=== PATIENT | female | born 1930 | race Caucasian/White ===

== ENCOUNTER 2016-10-09 17:17 | Inpatient (IN) | payer OTHER, BC ==
[2016-10-09 18:36] VITALS: BMI 23.4
[2016-10-09 20:19] LABS: ALBUMIN 3.2 g/dl (3.4-5.0); ANION GAP 12 (8-16); BILIRUBIN,TOTAL 0.8 mg/dL (0.2-1.0); CALCIUM 8.9 mg/dL (8.5-10.1); CO2 22 mmol/L (21-32); COCKROFT - GAULT 48.6455; CREATININE 0.7 mg/dL (0.55-1.02); GLUCOSE,RANDOM 90 mg/dL (74-106); SGOT/AST 34 U/L (15-37); SGPT/ALT 40 U/L (12-78); TOT PROT 6.3 g/dl (6.4-8.2)
[2016-10-09 20:22] LABS: ALK PHOS 85 U/L (45-117); TROPONIN I < 0.02 ng/ml (0.00-0.05)
[2016-10-09 20:27] LABS: BASOPHIL 0.9 % (0-2.0); EOSINOPHIL 1.7 % (0-4.5); MCHC 33.1 g/dl (32.0-36.0); MEAN CELL VOLUME 93.7 fl (80-96); MEAN PLT VOLUME 9.3 fl (7.5-11.1); NEUTROPHILS 61.7 % (42.8-82.8); PLATELET COUNT 215 K/MM3 (134-434); RDW 13.7 % (11.6-15.6); WHITE BLOOD COUNT 5.1 K/mm3 (4.0-10.0)
[2016-10-09] MEDS ORDERED: FUROSEMIDE 40 MG/4 ML INJECTABLE VIAL IVPB ONE (21:10)
--- NOTE | 2016-10-09 21:15 | PDOC ---
History of Present Illness - General Chief Complaint: Palpitations Stated Complaint: PCP SENT/SOB/PALPITATIONS Time Seen by Provider: 10/09/16 19:06 History Source: Patient, Family Exam Limitations: No Limitations - History of Present Illness Initial Comments: 10/09/16 21:12 85yo Female patient presents to ED with son c/o shortness of breath. Patient states she was sent by Dr. Saunders (Cardiology) for admission. She states for the past several days she has experienced increasing shortness of breath, lower extremity swelling, and palpitations. Patient states she stopped taking Lasix 2 weeks ago, because it makes her urinate to much. Patient denies CP, Abd pain, n/ v/d, fever, cough, congestion, back pain, rash, or any other complaints at this time. Presenting Symptoms: Short of Breath Timing/Duration: reports: getting worse Severity/Quality: reports: moderate Location: denies: substernal, central, epigastric, shoulder, back, abdomen, other Chest Pain Radiation: denies: no radiation, jaw, arms, neck, shoulders, back, sternal notch, epigastric, other Activities at Onset: reports: exertion Past History - Travel Traveled outside of the country in the last 30 days: No Close contact w/someone who was outside of country & ill: No - Past Medical History Allergies/Adverse Reactions: Allergies Allergy/AdvReac Type Severity Reaction Status Date / Time No Known Drug Allergies Allergy Verified 10/09/16 18:10 Home Medications: Ambulatory Orders Aspirin [ASA -] 81 mg PO DAILY 03/07/15 Mirtazapine 7.5 mg PO HS 06/07/15 Carvedilol [Coreg -] 3.125 mg PO DAILY #30 tablet 06/13/15 Furosemide [Lasix -] 20 mg PO DAILY #30 tablet 06/13/15 Anemia: No Asthma: No Cancer: Yes (CA UTERUS) Cardiac Disorders: No CVA: No COPD: No CHF: No Dementia: No Diabetes: No GI Disorders: No Disorders: Yes (KIDNEY STONES) HTN: No Hypercholesterolemia: No Liver Disease: No Seizures: No Thyroid Disease: No - Surgical History Abdominal Surgery: Yes (HERNIA) Appendectomy: Yes - Psycho/Social/Smoking Cessation Hx Anxiety: No Suicidal Ideation: No Smoking History: Never smoked Have you smoked in the past 12 months: No Information on smoking cessation initiated: No Hx Alcohol Use: No Drug/Substance Use Hx: No Substance Use Type: None Cardiac Specific PMH - Complaint Specific PMHX Pacemaker: No Review of Systems - Review of Systems Able to Perform ROS?: Yes Is the patient limited Burmese proficient: No Constitutional: No: Chills, Fever Respiratory: Yes: Cough, Shortness of Breath, SOB with Exertion Cardiac (ROS): No: Chest Pain, Lightheadedness, Palpitations, Syncope, Chest Tightness ABD/GI: No: Diarrhea, Nausea, Vomiting : No: Burning, Dysuria, Hematuria Musculoskeletal: No: Back Pain All Other Systems: Reviewed and Negative *Physical Exam - Vital Signs Last Vital Signs Temp Pulse Resp BP Pulse Ox 97.2 F L 89 18 102/69 100 10/09/16 17:30 10/09/16 17:30 10/09/16 17:30 10/09/16 17:30 10/09/16 19:00 - Physical Exam General Appearance: Yes: Nourished, Appropriately Dressed. No: Apparent Distress, Mild Distress, Moderate Distress, Severe Distress Neck: positive: Trachea midline, Supple. negative: Stridor, Lymphadenopathy (R) , Lymphadenopathy (L) Respiratory/Chest: positive: Crackles. negative: Chest Tender, Lungs Clear, Normal Breath Sounds, Respiratory Distress, Labored Respiration Cardiovascular: positive: Regular Rhythm, Regular Rate, Edema (2+ non-pitting edema) Gastrointestinal/Abdominal: positive: Normal Bowel Sounds, Soft, Distended. negative: Tender, Guarding, Rebound, Tenderness Musculoskeletal: positive: Normal Inspection. negative: CVA Tenderness Extremity: positive: Normal Capillary Refill, Normal Inspection, Normal Range of Motion, Pedal Edema, Swelling. negative: Calf Tenderness, Erythema, Inflammation Integumentary: positive: Normal Color, Dry, Warm Neurologic: positive: critical care clinical nurse specialist II-XII NML intact, Fully Oriented, Alert, Normal Mood/ Affect, Normal Response, Motor Strength 5/5 Heart Score/ECG Review - History History: Slightly suspicious - Electrocardiogram EKG: Normal - Age Age: >/= 65 - Risk Factors Risk Factors Heart Score: Yes Hx Hypercholesterolemia, Yes Hx Hypertension, Yes Positive family hx of cardiac disease Based on the list above the patient has:: >/=3 risk factors or Hx atherosclerotic disease - Troponin Troponin: </= normal limit - Score Heart Score - Total: 4 - ECG Impressions Normal ECG: No Non-specific ST Elevation: No Ischemic Changes: No Bradycardia: No Torsades angela Pointes: No WPW: No Comment:: 10/09/16 21:49 Sinus rhythm with PAC w/ rate of 90 bpm. ED Treatment Course - LABORATORY CBC & Chemistry Diagram: 10/09/16 19:35 10/09/16 19:35 - ADDITIONAL ORDERS Additional order review: Laboratory Results 10/09/16 19:35 Sodium 138 Potassium 4.6 Chloride 104 Carbon Dioxide 22 Anion Gap 12 BUN 22 H Creatinine 0.7 Creat Clearance w eGFR > 60 Random Glucose 90 Calcium 8.9 Total Bilirubin 0.8 D AST 34 D ALT 40 D Alkaline Phosphatase 85 Creatine Kinase 67 Troponin I < 0.02 B-Natriuretic Peptide 7173.21 H Total Protein 6.3 L Albumin 3.2 L 10/09/16 19:35 RBC 3.83 MCV 93.7 MCHC 33.1 RDW 13.7 MPV 9.3 Neutrophils % 61.7 Lymphocytes % 27.3 Monocytes % 8.4 Eosinophils % 1.7 Basophils % 0.9 - RADIOLOGY Radiology Studies Ordered: Category Date Time Status CHEST PA & LAT [RAD] Stat Radiology 10/09/16 19:26 Taken *DC/Admit/Observation/Transfer Diagnosis at time of Disposition: CHF (congestive heart failure), Short of breath on exertion - Discharge Dispostion Condition at time of disposition: Fair Admit: Yes
[2016-10-09] MEDS ORDERED: FUROSEMIDE 40 MG/4 ML INJECTABLE VIAL ONE (21:21)
[2016-10-10 07:42] LABS: BASOPHIL 2.5 % (0-2.0); EOSINOPHIL 2.7 % (0-4.5); MCH 31.7 pg (25.7-33.7); MCHC 34.2 g/dl (32.0-36.0); MEAN CELL VOLUME 92.8 fl (80-96); MEAN PLT VOLUME 8.5 fl (7.5-11.1); NEUTROPHILS 51.4 % (42.8-82.8); PLATELET COUNT 200 K/MM3 (134-434); RDW 13.7 % (11.6-15.6); WHITE BLOOD COUNT 4.1 K/mm3 (4.0-10.0)
[2016-10-10 08:36] LABS: ALBUMIN 3.1 g/dl (3.4-5.0); ALK PHOS 81 U/L (45-117); ANION GAP 12 (8-16); BILIRUBIN,TOTAL 1.1 mg/dL (0.2-1.0); CALCIUM 8.7 mg/dL (8.5-10.1); CO2 27 mmol/L (21-32); COCKROFT - GAULT 48.6455; CREATININE 0.7 mg/dL (0.55-1.02); GLUCOSE,RANDOM 84 mg/dL (74-106); SGOT/AST 23 U/L (15-37); SGPT/ALT 37 U/L (12-78); TOT PROT 6.1 g/dl (6.4-8.2)
--- NOTE | 2016-10-10 08:36 | HP ---
Admitting History and Physical - Primary Care Physician PCP: Savanna Stallings - Admission Chief Complaint: Gradually worsening SOB and plapittaion. History of Present Illness: 85 yrs old F H/O HTN, CAD, HF with moderately reduced EF and diastolic Dysfunctions, moderate MR with PHTN , stopped taking llasix 2 wks ago as it was inconvenient for her, developed gradually worsening SOB, [place] with PND and orthopnea, today visited her [employer] office , considering worsening symptoms of decompensated CHF referred to Ed for hospitalization for IV Diuresis, patient denies any chest pain, fever, cough, palpitation or dizziness , in the Ed received Lasix with good response. Today less SOB and Dyspnea. - Past Medical History Cardiovascular: Yes: CHF, HTN - Smoking History Smoking history: Never smoked Have you smoked in the past 12 months: No - Alcohol/Substance Use Hx Alcohol Use: No Home Medications - Allergies Allergies/Adverse Reactions: Allergies Allergy/AdvReac Type Severity Reaction Status Date / Time No Known Drug Allergies Allergy Verified 10/09/16 18:10 - Home Medications Home Medications: Ambulatory Orders Aspirin [ASA -] 81 mg PO DAILY 03/07/15 Mirtazapine 7.5 mg PO HS 06/07/15 Carvedilol [Coreg -] 3.125 mg PO DAILY #30 tablet 06/13/15 Furosemide [Lasix -] 20 mg PO DAILY #30 tablet 06/13/15 Family Disease History - Family Disease History Family Disease History: Heart Disease: Mother Review of Systems - Review of Systems Constitutional: denies: Diaphoresis, Fever Eyes: denies: Blind Spots, Blurred Vision, Double Vision HENT: denies: Difficult Swallowing, Ear Discharge Neck: denies: Decreased ROM, Lumps, Pain on Movement Cardiovascular: reports: Edema, Shortness of Breath Respiratory: reports: Exercise Intolerance, SOB on Exertion. denies: Cough Gastrointestinal: denies: Abdominal Pain, Bloating, Constipation Genitourinary: denies: Burning, Discharge Musculoskeletal: denies: Back Pain Integumentary: reports: No Symptoms Neurological: denies: No Symptoms, Change in LOC Endocrine: denies: Excessive Sweating, Flushing Hematology/Lymphatic: reports: No Symptoms. denies: Easily Bruised, Excessive Bleeding Psychiatric: reports: No Symptoms. denies: Anxiety, Depression Physical Examination Vital Signs: Vital Signs Temperature 98.4 F 10/10/16 06:24 Pulse Rate 85 10/10/16 06:24 Respiratory Rate 18 10/10/16 06:24 Blood Pressure 105/67 10/10/16 06:24 O2 Sat by Pulse Oximetry (%) 98 10/10/16 05:25 Constitutional: Yes: No Distress, Calm Eyes: Yes: Conjunctiva Clear, EOM Intact HENT: Yes: WNL, Normocephalic. No: Nasal Congestion Neck: Yes: WNL, Supple, Trachea Midline Cardiovascular: Yes: Regular Rate and Rhythm, JVD, Murmur (Systolic in MA) Respiratory: Yes: Regular, Rales ...Rectal Exam: Yes: Deferred Renal/: No: Anuria, Bladder Distention Musculoskeletal: Yes: WNL. No: Back Pain, Joint Stiffness Edema: Yes Edema: LLE: 1+, RLE: 1+ Peripheral Pulses WNL: Yes Peripheral Pulses: Left Doralis Pedis: 2+, Right Dorsalis Pedis: 2+ Integumentary: Yes: WNL Neurological: Yes: WNL, Alert, Oriented ...Motor Strength: WNL, LUE, LLE, RUE, RLE Psychiatric: Yes: WNL, Alert, Oriented. No: Agitated Labs: 10/10/16 05:35 Laboratory Results - last 24 hr 10/09/16 10/09/16 10/10/16 19:35 19:35 05:35 WBC 5.1 4.1 RBC 3.83 3.84 Hgb 11.9 12.2 Hct 35.8 35.7 MCV 93.7 92.8 MCHC 33.1 34.2 RDW 13.7 13.7 Plt Count 215 200 MPV 9.3 8.5 Neutrophils % 61.7 51.4 Lymphocytes % 27.3 33.3 D Monocytes % 8.4 10.1 Eosinophils % 1.7 2.7 Basophils % 0.9 2.5 H Sodium 138 Potassium 4.6 Chloride 104 Carbon Dioxide 22 Anion Gap 12 BUN 22 H Creatinine 0.7 Creat Clearance w eGFR > 60 Random Glucose 90 Calcium 8.9 Total Bilirubin 0.8 D AST 34 D ALT 40 D Alkaline Phosphatase 85 Creatine Kinase 67 Troponin I < 0.02 B-Natriuretic Peptide 7173.21 H Total Protein 6.3 L Albumin 3.2 L Imaging - Results X-ray: Image Reviewed (Pulmonary congestion) EKG: Image Reviewed Problem List - Problems (1) Acute on chronic combined systolic (congestive) and diastolic (congestive) heart failure Code(s): I50.43 - ACUTE ON CHRONIC COMBINED SYSTOLIC AND DIASTOLIC HRT FAIL (2) HTN (hypertension) Code(s): I10 - ESSENTIAL (PRIMARY) HYPERTENSION Qualifiers: Hypertension type: essential hypertension Qualified Code(s): I10 - Essential (primary) hypertension (3) Mitral regurgitation Code(s): I34.0 - NONRHEUMATIC MITRAL (VALVE) INSUFFICIENCY Qualifiers: Cardiac valve disease etiology: nonrheumatic Qualified Code(s): I34.0 - Nonrheumatic mitral (valve) insufficiency (4) Pulmonary HTN Code(s): I27.2 - OTHER SECONDARY PULMONARY HYPERTENSION Assessment/Plan Assessment/Plan Active Medications Active Medications Generic Name Dose Route Start Last Admin Trade Name Freq PRN Reason Stop Dose Admin Aspirin 81 mg 10/10/16 10:00 10/10/16 10:13 Asa - PO 81 mg DAILY LEANNA Administration Carvedilol 3.125 mg 10/10/16 10:00 10/10/16 12:01 Coreg - PO 3.125 mg DAILY LEANNA Administration Enoxaparin Sodium 30 mg 10/10/16 10:00 10/10/16 11:45 Lovenox - SQ Not Given DAILY LEANNA Furosemide 40 mg 10/11/16 10:00 Lasix Injection - IVPUSH DAILY LEANNA Mirtazapine 7.5 mg 10/10/16 22:00 Remeron - PO HS LEANNA Active Medications 1) Acute on chronic combined systolic (congestive) and diastolic (congestive) heart failure Patient has moderately reduced LVFEF with Diastolic dysfunctions, Cont IV Lasix 40mg daily, low salt Diet, Coreg 3.25 mg BID, Entresto, Aldactone F/U BMP daily , ECHO and Cardiology consult. (2) HTN (hypertension) Well controlled cont all home medications (3) Mitral regurgitation Chronic F/U CHF management (4) Pulmonary HTN Secondary to valvular disease and CHF 5. CAD: Patient opted for medical amangement
[2016-10-10] MEDS ORDERED: FUROSEMIDE 40 MG/4 ML INJECTABLE VIAL IVPB ONE (09:00)
[2016-10-10] MEDS ORDERED: ENOXAPARIN NA (PORCINE) 40 MG/0.4 ML DISP.SYRIN SQ SCH (10:00)
[2016-10-10] MEDS: ASPIRIN 81 MG CHEWABLE TABLETS PO SCH (10:13)
[2016-10-10] MEDS: ENOXAPARIN NA (PORCINE) 30 MG/0.3 ML DISP.SYRIN SQ SCH (11:45)
--- NOTE | 2016-10-10 11:58 | CON.CARD ---
Consult Consult Specialty:: Cardiology Referred by:: Patient of Dr. Stallings Reason for Consultation:: Cardiac evaluation - History of Present Illness Chief Complaint: Shortness of breath History of Present Illness: Patient is an 85 year old female well known to me with underlying history of HTN /HCVD, CAD, history of acute on chronic LV systolic and diastolic failure, moderately reduced LV systolic function with segmental wall motion abnormality, moderate to severe mitral valve regurgitation, moderate to severe tricuspid valve regurgitation, moderate pulmonary hypertension, abnormal nuclear myocardial perfusion - large zone of anteroapical and periapical fixed defect c/ w infarct with small chaparro-infarct ischemia and severely reduced LVEF of 36%, cardiac catheterization revealing 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 Resting thallium showed some viability at the apical segment. Patient was opted to be treated medically after full discussions in the office regarding treatment options. Patient was brought in to ED yesterday due to increase in shortness of breath. She denies chest pain or palpitations. She denies paroxysmal nocturnal dyspnea or orthopnea. She denies fever or chills. She denies headache or lightheadedness. Cardiology consultation was called for further evaluation. - History Source History Provided By: Patient, Family Member, Medical Record Limitations to Obtaining History: No Limitations - Past Medical History Cardio/Vascular: Yes: CAD, CHF, HTN, Mitral Insufficiency, Murmur, Pulmonary Hypertension - Alcohol/Substance Use Hx Alcohol Use: No - Smoking History Smoking history: Never smoked Have you smoked in the past 12 months: No Home Medications - Allergies Allergies/Adverse Reactions: Allergies Allergy/AdvReac Type Severity Reaction Status Date / Time No Known Drug Allergies Allergy Verified 10/09/16 18:10 - Home Medications Home Medications: Ambulatory Orders Aspirin [ASA -] 81 mg PO DAILY 03/07/15 Mirtazapine 7.5 mg PO HS 06/07/15 Carvedilol [Coreg -] 3.125 mg PO DAILY #30 tablet 06/13/15 Furosemide [Lasix -] 20 mg PO DAILY #30 tablet 06/13/15 Review of Systems - Review of Systems Constitutional: denies: Chills, Fever Cardiovascular: reports: Shortness of Breath. denies: Chest Pain, Palpitations Respiratory: reports: SOB, SOB on Exertion. denies: Cough, Hemoptysis, Orthopnea, PND, Wheezing Gastrointestinal: denies: Abdominal Pain, Constipation, Diarrhea, Melena, Nausea , Rectal Bleeding, Vomiting Genitourinary: denies: Dysuria Musculoskeletal: reports: Joint Pain Neurological: reports: Unsteady Gait, Weakness. denies: Dizziness, Headache, Numbness, Seizure, Syncope Vital Signs: Vital Signs Temperature 98.2 F 10/10/16 10:00 Pulse Rate 85 10/10/16 10:00 Respiratory Rate 18 10/10/16 10:00 Blood Pressure 93/62 10/10/16 10:00 O2 Sat by Pulse Oximetry (%) 98 10/10/16 10:00 Neck: Yes: Supple Respiratory: Yes: Diminished Gastrointestinal: Yes: Normal Bowel Sounds, Soft. No: Tenderness Cardiovascular: Yes: Regular Rate and Rhythm JVD: No Carotid Bruit: No PMI: Non-Displaced Heart Sounds: Yes: S1, S2. No: Gallop Murmur: Yes: Systolic Murmur (2/6 SM at apex and left sternal border), Grade 2 Edema: Yes Edema: LLE: 1+, RLE: 1+ - Other Data Labs, Other Data: CBC, BMP 10/10/16 05:35 10/10/16 05:35 Laboratory Results - last 24 hr 10/09/16 10/09/16 10/10/16 19:35 19:35 05:35 WBC 5.1 4.1 RBC 3.83 3.84 Hgb 11.9 12.2 Hct 35.8 35.7 MCV 93.7 92.8 MCHC 33.1 34.2 RDW 13.7 13.7 Plt Count 215 200 MPV 9.3 8.5 Neutrophils % 61.7 51.4 Lymphocytes % 27.3 33.3 D Monocytes % 8.4 10.1 Eosinophils % 1.7 2.7 Basophils % 0.9 2.5 H Sodium 138 Potassium 4.6 Chloride 104 Carbon Dioxide 22 Anion Gap 12 BUN 22 H Creatinine 0.7 Creat Clearance w eGFR > 60 Random Glucose 90 Calcium 8.9 Total Bilirubin 0.8 D AST 34 D ALT 40 D Alkaline Phosphatase 85 Creatine Kinase 67 Troponin I < 0.02 B-Natriuretic Peptide 7173.21 H Total Protein 6.3 L Albumin 3.2 L 10/10/16 05:35 WBC RBC Hgb Hct MCV MCHC RDW Plt Count MPV Neutrophils % Lymphocytes % Monocytes % Eosinophils % Basophils % Sodium 141 Potassium 3.9 Chloride 102 Carbon Dioxide 27 D Anion Gap 12 BUN 17 D Creatinine 0.7 Creat Clearance w eGFR > 60 Random Glucose 84 Calcium 8.7 Total Bilirubin 1.1 H D AST 23 D ALT 37 Alkaline Phosphatase 81 Creatine Kinase Troponin I B-Natriuretic Peptide Total Protein 6.1 L Albumin 3.1 L Sinus rhythm with nonspecific T wave, poor R progression Echo: Report Reviewed (Office echocardiography report in HPI) Imaging - Results Chest X-ray: Report Reviewed (Pleural fluid and cardiomegaly) EKG: Report Reviewed Problem List - Problems (1) Acute on chronic combined systolic (congestive) and diastolic (congestive) heart failure Code(s): I50.43 - ACUTE ON CHRONIC COMBINED SYSTOLIC AND DIASTOLIC HRT FAIL (2) CHF (congestive heart failure) Code(s): I50.9 - HEART FAILURE, UNSPECIFIED Qualifiers: Congestive heart failure type: combined Congestive heart failure chronicity: acute on chronic Qualified Code(s): I50.43 - Acute on chronic combined systolic (congestive) and diastolic (congestive) heart failure (3) HTN (hypertension) Code(s): I10 - ESSENTIAL (PRIMARY) HYPERTENSION Qualifiers: Hypertension type: essential hypertension Qualified Code(s): I10 - Essential (primary) hypertension (4) Mitral regurgitation Code(s): I34.0 - NONRHEUMATIC MITRAL (VALVE) INSUFFICIENCY Qualifiers: Cardiac valve disease etiology: nonrheumatic Qualified Code(s): I34.0 - Nonrheumatic mitral (valve) insufficiency (5) Pulmonary HTN Code(s): I27.2 - OTHER SECONDARY PULMONARY HYPERTENSION (6) Tricuspid regurgitation Code(s): I07.1 - RHEUMATIC TRICUSPID INSUFFICIENCY Qualifiers: Cardiac valve disease etiology: nonrheumatic Qualified Code(s): I36.1 - Nonrheumatic tricuspid (valve) insufficiency (7) CAD (coronary artery disease) Code(s): I25.10 - ATHSCL HEART DISEASE OF [place] CORONARY ARTERY W/O ANG PCTRS Qualifiers: Coronary Disease-Associated Artery/Lesion type: [place] artery [place] vs. transplanted heart: [place] heart Associated angina: without angina Qualified Code(s): I25.10 - Atherosclerotic heart disease of [place] coronary artery without angina pectoris Assessment/Plan 1. Acute on chronic LV systolic and diastolic hear failure - Class II-III NYHA classification LV failure 2. Coronary artery disease - JACQUARD LOOM FIXER of LAD with collaterals 3. Severely reduced LVEF 4. Mitral valve regurgitation 5. Tricuspid valve regurgitation with moderate pulmonary HTN 6. HTN/HCVD PLAN: 1. IV Lasix (Furosemide 40 mg IV once a day) and monitor I/Os and daily weight 2. Continue Entresto 49/51 mg twice a day 3. Continue Carvedilol 12.5 mg twice a day 4. Continue ASA 81 mg once a day 5. Continue Spironolactone 25 mg once a day as tolerated 6. Possibly repeat echocardiography on Wednesday prior to discharge Further plans are to follow Juan Saunders MD
[2016-10-10] MEDS: CARVEDILOL 3.125 MG TABLET (FP) PO SCH (12:01)
--- NOTE | 2016-10-10 12:08 | EKG ---
Test Reason : Blood Pressure : / mmHG Vent. Rate : 092 BPM Atrial Rate : 092 BPM P-R Int : 190 ms QRS Dur : 074 ms QT Int : 388 ms P-R-T Axes : 078 008 082 degrees QTc Int : 479 ms SINUS RHYTHM WITH PREMATURE ATRIAL COMPLEXES LEFT ATRIAL ENLARGEMENT ANTEROSEPTAL INFARCT (CITED ON OR BEFORE 09-MAY-2015) T WAVE ABNORMALITY, CONSIDER LATERAL ISCHEMIA ABNORMAL ECG Confirmed by MD NETO, HILARIO ([id number]) on 10/10/2016 12:08:17 PM Referred By: Confirmed By:HILARIO DUQUE MD
[2016-10-10] MEDS: SACUBITRIL/VALSARTAN 49 MG-51 MG TABLET PO SCH ×2 (14:11→21:36)
[2016-10-10] MEDS ORDERED: PT OWN MED DRAWER 7, Y5N ONE (21:35)
[2016-10-10] MEDS: MIRTAZAPINE 15 MG TABLET (FP) PO SCH (21:36)
--- NOTE | 2016-10-11 09:31 | PN ---
Progress Note, Physician Chief Complaint: Feels better Less SOB History of Present Illness: Patient was seen and examined. Awake and alert. Chart was reviewed Denies chest pain or palpitations Less SOB - Current Medication List Current Medications: Active Medications Aspirin (Asa -) 81 mg PO DAILY [facility] Last Admin: 10/10/16 10:13 Dose: 81 mg Carvedilol (Coreg -) 3.125 mg PO DAILY [facility] Last Admin: 10/10/16 12:01 Dose: 3.125 mg Enoxaparin Sodium (Lovenox -) 30 mg SQ DAILY [facility] Last Admin: 10/10/16 11:45 Dose: Not Given Furosemide (Lasix Injection -) 40 mg IVPUSH DAILY [facility] Mirtazapine (Remeron -) 7.5 mg PO HS [facility] Last Admin: 10/10/16 21:36 Dose: 7.5 mg - Objective Vital Signs: Vital Signs Temperature 97.9 F 10/11/16 06:00 Pulse Rate 72 10/11/16 06:00 Respiratory Rate 20 10/11/16 06:00 Blood Pressure 96/50 10/11/16 06:00 O2 Sat by Pulse Oximetry (%) 97 10/10/16 20:23 HENT: Yes: Atraumatic Neck: Yes: Supple Cardiovascular: Yes: Regular Rate and Rhythm, Murmur (2/6 SM apex and LSB), S1, S2 Respiratory: Yes: Diminished Gastrointestinal: Yes: Normal Bowel Sounds, Soft. No: Tenderness Edema: Yes Edema: LLE: Trace, RLE: Trace Additional Findings/Remarks: - Review of Systems Constitutional: denies: Chills, Fever Cardiovascular: reports: Shortness of Breath. denies: Chest Pain, Palpitations Respiratory: reports: SOB, SOB on Exertion. denies: Cough, Hemoptysis, Orthopnea, PND, Wheezing Gastrointestinal: denies: Abdominal Pain, Constipation, Diarrhea, Melena, Nausea , Rectal Bleeding, Vomiting Genitourinary: denies: Dysuria Musculoskeletal: reports: Joint Pain Neurological: reports: Unsteady Gait, Weakness. denies: Dizziness, Headache, Numbness, Seizure, Syncope Labs: CBC, BMP 10/10/16 05:35 10/10/16 05:35 Problem List - Problems (1) Acute on chronic combined systolic (congestive) and diastolic (congestive) heart failure Code(s): I50.43 - ACUTE ON CHRONIC COMBINED SYSTOLIC AND DIASTOLIC HRT FAIL (2) CHF (congestive heart failure) Code(s): I50.9 - HEART FAILURE, UNSPECIFIED Qualifiers: Congestive heart failure type: combined Congestive heart failure chronicity: acute on chronic Qualified Code(s): I50.43 - Acute on chronic combined systolic (congestive) and diastolic (congestive) heart failure (3) HTN (hypertension) Code(s): I10 - ESSENTIAL (PRIMARY) HYPERTENSION Qualifiers: Hypertension type: essential hypertension Qualified Code(s): I10 - Essential (primary) hypertension (4) Mitral regurgitation Code(s): I34.0 - NONRHEUMATIC MITRAL (VALVE) INSUFFICIENCY Qualifiers: Cardiac valve disease etiology: nonrheumatic Qualified Code(s): I34.0 - Nonrheumatic mitral (valve) insufficiency (5) Pulmonary HTN Code(s): I27.2 - OTHER SECONDARY PULMONARY HYPERTENSION (6) Tricuspid regurgitation Code(s): I07.1 - RHEUMATIC TRICUSPID INSUFFICIENCY Qualifiers: Cardiac valve disease etiology: nonrheumatic Qualified Code(s): I36.1 - Nonrheumatic tricuspid (valve) insufficiency (7) CAD (coronary artery disease) Code(s): I25.10 - ATHSCL HEART DISEASE OF [place] CORONARY ARTERY W/O ANG PCTRS Qualifiers: Coronary Disease-Associated Artery/Lesion type: [place] artery [place] vs. transplanted heart: [place] heart Associated angina: without angina Qualified Code(s): I25.10 - Atherosclerotic heart disease of [place] coronary artery without angina pectoris Assessment/Plan 1. Acute on chronic LV systolic and diastolic hear failure - Class II-III NYHA classification LV failure - improving 2. Coronary artery disease - LINEN ATTENDANT of LAD with collaterals 3. Severely reduced LVEF 4. Mitral valve regurgitation 5. Tricuspid valve regurgitation with moderate pulmonary HTN 6. HTN/HCVD PLAN: 1. IV Lasix (Furosemide 40 mg IV once a day) and monitor I/Os and daily weight 2. Continue Entresto 49/51 mg twice a day 3. Continue Carvedilol 12.5 mg twice a day 4. Continue ASA 81 mg once a day 5. Continue Spironolactone 25 mg once a day as tolerated 6. Possibly repeat echocardiography on Wednesday prior to discharge Further plans are to follow Juan Saunders MD
[2016-10-11] MEDS: CARVEDILOL 3.125 MG TABLET (FP) PO SCH (09:49)
[2016-10-11] MEDS: ASPIRIN 81 MG CHEWABLE TABLETS PO SCH (09:49)
[2016-10-11] MEDS: FUROSEMIDE 40 MG/4 ML INJECTABLE VIAL IVPUSH SCH (09:50)
[2016-10-11] MEDS: ENOXAPARIN NA (PORCINE) 30 MG/0.3 ML DISP.SYRIN SQ SCH (09:51)
[2016-10-11] MEDS: SACUBITRIL/VALSARTAN 49 MG-51 MG TABLET PO SCH ×2 (09:57→21:42)
[2016-10-11 12:07] LABS: URINE APPEARANCE CLEAR; URINE BILIRUBIN NEGATIVE (NEGATIVE); URINE BLOOD NEGATIVE (NEGATIVE); URINE COLOR COLORLESS; URINE GLUCOSE (UA) NEGATIVE (NEGATIVE); URINE KETONE NEGATIVE (NEGATIVE); URINE NITRITE NEGATIVE (NEGATIVE); URINE PROTEIN NEGATIVE (NEGATIVE); URINE UROBILINOGEN NEGATIVE E.U./dl (0.2-1.0)
[2016-10-11 12:08] LABS: URINE LEUK ESTERASE 2+ (NEGATIVE)
[2016-10-11 12:09] LABS: URINE BACTERIA RARE /hpf (NONE SEEN); URINE RBC <1 /hpf (0-3); URINE WBC 23 /hpf (3-5)
[2016-10-11 13:24] LABS: COCKROFT - GAULT 30.855; CREATININE 1.1 mg/dL (0.55-1.02)
[2016-10-11 13:48] LABS: MCHC 33.5 g/dl (32.0-36.0); MEAN CELL VOLUME 92.7 fl (80-96); MEAN PLT VOLUME 8.8 fl (7.5-11.1); PLATELET COUNT 276 K/MM3 (134-434); WHITE BLOOD COUNT 6.6 K/mm3 (4.0-10.0)
--- NOTE | 2016-10-11 15:24 | PN ---
Progress Note, Physician Chief Complaint: feels improved denies any SOB or Palpitation still [place] History of Present Illness: 85 yrs old F admitted withy CHF exacerbation - Current Medication List Current Medications: Active Medications Aspirin (Asa -) 81 mg PO DAILY [facility] Last Admin: 10/11/16 09:49 Dose: 81 mg Carvedilol (Coreg -) 3.125 mg PO DAILY [facility] Last Admin: 10/11/16 09:49 Dose: 3.125 mg Enoxaparin Sodium (Lovenox -) 30 mg SQ DAILY [facility] Last Admin: 10/11/16 09:51 Dose: 30 mg Furosemide (Lasix Injection -) 40 mg IVPUSH DAILY [facility] Last Admin: 10/11/16 09:50 Dose: 40 mg Mirtazapine (Remeron -) 7.5 mg PO HS [facility] Last Admin: 10/10/16 21:36 Dose: 7.5 mg - Objective Vital Signs: Vital Signs Temperature 98.2 F 10/11/16 14:00 Pulse Rate 86 10/11/16 14:00 Respiratory Rate 20 10/11/16 14:00 Blood Pressure 94/48 10/11/16 14:00 O2 Sat by Pulse Oximetry (%) 97 10/10/16 20:23 Constitutional: Yes: Well Nourished, No Distress, Calm Eyes: Yes: WNL, Conjunctiva Clear, EOM Intact HENT: Yes: WNL, Atraumatic, Normocephalic Neck: Yes: WNL, Trachea Midline Cardiovascular: Yes: WNL, Regular Rate and Rhythm, Murmur (Systolic in Mitral area), S1, S2 Respiratory: Yes: WNL, Regular, CTA Bilaterally Gastrointestinal: Yes: WNL, Normal Bowel Sounds, Soft Musculoskeletal: Yes: WNL. No: Back Pain, Joint Stiffness Extremities: Yes: WNL. No: Calf Tenderness Edema: LLE: 1+, RLE: 1+ Peripheral Pulses WNL: Yes Peripheral Pulses: Left Doralis Pedis: 1+, Right Dorsalis Pedis: 1+ Wound/Incision: Yes: Clean/Dry Neurological: Yes: WNL, Alert, Oriented ...Motor Strength: WNL, LUE, LLE, RUE, RLE Psychiatric: Yes: WNL, Alert, Oriented Labs: CBC, BMP 10/11/16 12:50 05/21/17 12:45 - ....Imaging Chest X-ray: Image Reviewed (pulmonary congestion) Problem List - Problems (1) Acute on chronic combined systolic (congestive) and diastolic (congestive) heart failure Code(s): I50.43 - ACUTE ON CHRONIC COMBINED SYSTOLIC AND DIASTOLIC HRT FAIL (2) HTN (hypertension) Code(s): I10 - ESSENTIAL (PRIMARY) HYPERTENSION Qualifiers: Hypertension type: essential hypertension Qualified Code(s): I10 - Essential (primary) hypertension (3) Mitral regurgitation Code(s): I34.0 - NONRHEUMATIC MITRAL (VALVE) INSUFFICIENCY Qualifiers: Cardiac valve disease etiology: nonrheumatic Qualified Code(s): I34.0 - Nonrheumatic mitral (valve) insufficiency (4) Pulmonary HTN Code(s): I27.2 - OTHER SECONDARY PULMONARY HYPERTENSION Assessment/Plan Assessment/Plan 1) Acute on chronic combined systolic (congestive) and diastolic (congestive) heart failure Patient has moderately reduced LVFEF with Diastolic dysfunctions, Cont IV Lasix 40mg daily, low salt Diet, Coreg 3.25 mg BID, Entresto, Aldactone F/U BMP daily , ECHO and Cardiology consult. (2) HTN (hypertension) Well controlled cont all home medications (3) Mitral regurgitation Chronic F/U CHF management (4) Pulmonary HTN Secondary to valvular disease and CHF (5) CAD: Patient opted for medical management
[2016-10-11] MEDS ORDERED: PT OWN MED DRAWER 7, Y5N ONE ×2 (19:40→21:40)
[2016-10-11] MEDS: MIRTAZAPINE 15 MG TABLET (FP) PO SCH (21:42)
[2016-10-12 07:27] LABS: BASOPHIL 1.4 % (0-2.0); EOSINOPHIL 3.8 % (0-4.5); MCH 31.3 pg (25.7-33.7); MCHC 33.8 g/dl (32.0-36.0); MEAN CELL VOLUME 92.5 fl (80-96); MEAN PLT VOLUME 8.5 fl (7.5-11.1); NEUTROPHILS 49.3 % (42.8-82.8); PLATELET COUNT 260 K/MM3 (134-434); RDW 13.8 % (11.6-15.6); WHITE BLOOD COUNT 5.4 K/mm3 (4.0-10.0)
[2016-10-12 08:19] LABS: ALBUMIN 3.3 g/dl (3.4-5.0); CALCIUM 9.2 mg/dL (8.5-10.1); COCKROFT - GAULT 37.8335; CREATININE 0.9 mg/dL (0.55-1.02)
[2016-10-12 08:21] LABS: BILIRUBIN,TOTAL 0.6 mg/dL (0.2-1.0); TOT PROT 6.6 g/dl (6.4-8.2)
[2016-10-12] MEDS: SACUBITRIL/VALSARTAN 49 MG-51 MG TABLET PO SCH ×2 (09:26→22:04)
[2016-10-12] MEDS: ENOXAPARIN NA (PORCINE) 30 MG/0.3 ML DISP.SYRIN SQ SCH (09:27)
[2016-10-12] MEDS: FUROSEMIDE 40 MG/4 ML INJECTABLE VIAL IVPUSH SCH (09:27)
[2016-10-12] MEDS: CARVEDILOL 3.125 MG TABLET (FP) PO SCH (09:27)
[2016-10-12] MEDS: ASPIRIN 81 MG CHEWABLE TABLETS PO SCH (09:27)
--- NOTE | 2016-10-12 10:37 | PN ---
Progress Note, Physician Chief Complaint: Feels better Not in distress History of Present Illness: Patient was seen and examined. Awake and alert. Chart was reviewed Denies chest pain or palpitations breathing comfortable - Current Medication List Current Medications: Active Medications Aspirin (Asa -) 81 mg PO DAILY [facility] Last Admin: 10/12/16 09:27 Dose: 81 mg Carvedilol (Coreg -) 3.125 mg PO DAILY [facility] Last Admin: 10/12/16 09:27 Dose: 3.125 mg Enoxaparin Sodium (Lovenox -) 30 mg SQ DAILY [facility] Last Admin: 10/12/16 09:27 Dose: 30 mg Furosemide (Lasix Injection -) 40 mg IVPUSH DAILY [facility] Last Admin: 10/12/16 09:27 Dose: 40 mg Mirtazapine (Remeron -) 7.5 mg PO HS [facility] Last Admin: 10/11/16 21:42 Dose: 7.5 mg - Objective Vital Signs: Vital Signs Temperature 98.7 F 10/12/16 08:10 Pulse Rate 87 10/12/16 08:10 Respiratory Rate 20 10/12/16 08:10 Blood Pressure 100/61 10/12/16 08:10 O2 Sat by Pulse Oximetry (%) 94 L 10/11/16 21:00 Neck: Yes: Supple Cardiovascular: Yes: Regular Rate and Rhythm, Murmur (2/6 SM at apex and LSB), S1, S2 Respiratory: Yes: Diminished Gastrointestinal: Yes: Normal Bowel Sounds, Soft. No: Tenderness Edema: No Additional Findings/Remarks: - Review of Systems Constitutional: denies: Chills, Fever Cardiovascular: reports: Shortness of Breath - improved. denies: Chest Pain, Palpitations Respiratory: reports: SOB, SOB on Exertion - improved. denies: Cough, Hemoptysis, Orthopnea, PND, Wheezing Gastrointestinal: denies: Abdominal Pain, Constipation, Diarrhea, Melena, Nausea , Rectal Bleeding, Vomiting Genitourinary: denies: Dysuria Musculoskeletal: reports: Joint Pain Neurological: reports: Unsteady Gait, Weakness. denies: Dizziness, Headache, Numbness, Seizure, Syncope Labs: CBC, BMP 10/12/16 05:35 10/12/16 05:35 Problem List - Problems (1) Acute on chronic combined systolic (congestive) and diastolic (congestive) heart failure Code(s): I50.43 - ACUTE ON CHRONIC COMBINED SYSTOLIC AND DIASTOLIC HRT FAIL (2) CHF (congestive heart failure) Code(s): I50.9 - HEART FAILURE, UNSPECIFIED Qualifiers: Congestive heart failure type: combined Congestive heart failure chronicity: acute on chronic Qualified Code(s): I50.43 - Acute on chronic combined systolic (congestive) and diastolic (congestive) heart failure (3) HTN (hypertension) Code(s): I10 - ESSENTIAL (PRIMARY) HYPERTENSION Qualifiers: Hypertension type: essential hypertension Qualified Code(s): I10 - Essential (primary) hypertension (4) Mitral regurgitation Code(s): I34.0 - NONRHEUMATIC MITRAL (VALVE) INSUFFICIENCY Qualifiers: Cardiac valve disease etiology: nonrheumatic Qualified Code(s): I34.0 - Nonrheumatic mitral (valve) insufficiency (5) Pulmonary HTN Code(s): I27.2 - OTHER SECONDARY PULMONARY HYPERTENSION (6) Tricuspid regurgitation Code(s): I07.1 - RHEUMATIC TRICUSPID INSUFFICIENCY Qualifiers: Cardiac valve disease etiology: nonrheumatic Qualified Code(s): I36.1 - Nonrheumatic tricuspid (valve) insufficiency (7) CAD (coronary artery disease) Code(s): I25.10 - ATHSCL HEART DISEASE OF [place] CORONARY ARTERY W/O ANG PCTRS Qualifiers: Coronary Disease-Associated Artery/Lesion type: [place] artery [place] vs. transplanted heart: [place] heart Associated angina: without angina Qualified Code(s): I25.10 - Atherosclerotic heart disease of [place] coronary artery without angina pectoris Assessment/Plan 1. Acute on chronic LV systolic and diastolic hear failure - Class II-III NYHA classification LV failure - improving 2. 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 Severely reduced LVEF 4. Mitral valve regurgitation 5. Tricuspid valve regurgitation with moderate pulmonary HTN 6. HTN/HCVD PLAN: 1. IV Lasix (Furosemide 40 mg IV once a day) and monitor I/Os and daily weight - switch to PO Lasix and hope to discharge home today 2. Continue Entresto 49/51 mg twice a day 3. Continue Carvedilol 12.5 mg twice a day 4. Continue ASA 81 mg once a day 5. Restart Spironolactone 25 mg once a day as tolerated 6. Echocardiography today to be reviewed prior to discharge Further plans are to follow and follow up in office (Dr. Saunders) Juan Saunders MD
[2016-10-12] MEDS ORDERED: SPIRONOLACTONE 25 MG TABLET (FP) PO SCH (11:30)
--- NOTE | 2016-10-12 14:42 | DS ---
Physical Examination Vital Signs: Vital Signs Temperature 98.7 F 10/12/16 08:10 Pulse Rate 87 10/12/16 08:10 Respiratory Rate 20 10/12/16 08:10 Blood Pressure 100/61 10/12/16 08:10 O2 Sat by Pulse Oximetry (%) 96 10/12/16 08:00 Findings/Remarks: 85 yrs old F with H/O HTn, CAd opted for medical management, combined systolic and diastolic HF, Dyslipedemia, present with decompensated HF due to non compliance to diuretic admitted with elevated BNP and volume over load, patient is evaluated by Cardiology consult, received IV Lasix for diuresis is being discharged home on PO lasix, feels improved. [id number] stable. Elderly F feels comfortable no c/o SOB HEENT: MM moist, no anemia, PERRLA, EOMI NECK; JVD no Bruit CHEST: CTA B/L CVS; S1S2 R v SM in mitral area ABD: No distention, non tender BS + EXT: No edema feet, no calf tenderness, Pulses +1 [employer]; AOx3 non focal Constitutional: Yes: Well Nourished Eyes: Yes: WNL, Conjunctiva Clear HENT: Yes: WNL, Atraumatic, Normocephalic Neck: Yes: WNL, Supple, Trachea Midline Cardiovascular: Yes: WNL, Regular Rate and Rhythm, Bradycardia, Murmur. No: JVD Respiratory: Yes: WNL, Regular, CTA Bilaterally Gastrointestinal: Yes: WNL, Normal Bowel Sounds, Soft Extremities: Yes: WNL Edema: No Peripheral Pulses WNL: Yes Peripheral Pulses: Left Doralis Pedis: 1+, Right Dorsalis Pedis: 1+ ...Motor Strength: WNL, LUE, LLE, RUE, RLE Labs: CBC, BMP 10/12/16 05:35 10/12/16 05:35 Discharge Summary Reason For Visit: SOB ON EXERTTION,CONGESTIVE HEART FAILURE Current Active Problems Acute on chronic combined systolic (congestive) and diastolic (congestive) heart failure (Acute) CAD (coronary artery disease) (Acute) CHF (congestive heart failure) (Acute) Shortness of breath on exertion (Acute) Condition: Fair - Instructions Referrals: Savanna Stallings MD [Staff Physician] - 1 Week Juan Saunders MD [Staff Physician] - 1 Week - Home Medications Comprehensive Discharge Medication List: Ambulatory Orders Aspirin [ASA -] 81 mg PO DAILY 03/07/15 Mirtazapine 7.5 mg PO HS 06/07/15 Carvedilol [Coreg -] 3.125 mg PO DAILY #30 tablet 06/13/15 Furosemide [Lasix -] 40 mg PO DAILY tablet 10/12/16 Sacubitril/Valsartan [Entresto 49 mg-51 mg Tablet] 1 tab PO BID tablet Spironolactone [Aldactone -] 25 mg PO DAILY tablet 10/12/16
--- NOTE | 2016-10-12 15:19 | PN ---
Progress Note, Physician Chief Complaint: feels improved denies any SOB or Palpitation still [place] History of Present Illness: 85 yrs old F admitted withy CHF exacerbation - Current Medication List Current Medications: Active Medications Aspirin (Asa -) 81 mg PO DAILY [facility] Last Admin: 10/12/16 09:27 Dose: 81 mg Carvedilol (Coreg -) 3.125 mg PO DAILY [facility] Last Admin: 10/12/16 09:27 Dose: 3.125 mg Enoxaparin Sodium (Lovenox -) 30 mg SQ DAILY [facility] Last Admin: 10/12/16 09:27 Dose: 30 mg Furosemide (Lasix -) 40 mg PO DAILY [facility] Mirtazapine (Remeron -) 7.5 mg PO HS [facility] Last Admin: 10/11/16 21:42 Dose: 7.5 mg Spironolactone (Aldactone -) 25 mg PO DAILY [facility] Last Admin: 10/12/16 12:46 Dose: 25 mg - Objective Vital Signs: Vital Signs Temperature 97.0 F L 10/12/16 14:11 Pulse Rate 92 H 10/12/16 14:11 Respiratory Rate 18 10/12/16 14:11 Blood Pressure 87/45 10/12/16 14:11 O2 Sat by Pulse Oximetry (%) 96 10/12/16 08:00 Constitutional: Yes: Well Nourished, No Distress, Calm Eyes: Yes: WNL, Conjunctiva Clear, EOM Intact HENT: Yes: WNL, Atraumatic, Normocephalic Neck: Yes: WNL, Supple, Trachea Midline Cardiovascular: Yes: WNL, Regular Rate and Rhythm, Murmur Respiratory: Yes: WNL, Regular, CTA Bilaterally Gastrointestinal: Yes: WNL, Normal Bowel Sounds Musculoskeletal: Yes: WNL. No: Back Pain Extremities: Yes: WNL. No: Calf Tenderness Edema: No Peripheral Pulses: Left Doralis Pedis: 1+, Right Dorsalis Pedis: 1+ Neurological: Yes: WNL, Alert, Oriented ...Motor Strength: WNL, LUE, LLE, RUE, RLE Labs: CBC, BMP 10/12/16 05:35 10/12/16 05:35 Problem List - Problems (1) Acute on chronic combined systolic (congestive) and diastolic (congestive) heart failure Code(s): I50.43 - ACUTE ON CHRONIC COMBINED SYSTOLIC AND DIASTOLIC HRT FAIL (2) HTN (hypertension) Code(s): I10 - ESSENTIAL (PRIMARY) HYPERTENSION Qualifiers: Hypertension type: essential hypertension Qualified Code(s): I10 - Essential (primary) hypertension (3) Mitral regurgitation Code(s): I34.0 - NONRHEUMATIC MITRAL (VALVE) INSUFFICIENCY Qualifiers: Cardiac valve disease etiology: nonrheumatic Qualified Code(s): I34.0 - Nonrheumatic mitral (valve) insufficiency (4) Pulmonary HTN Code(s): I27.2 - OTHER SECONDARY PULMONARY HYPERTENSION Assessment/Plan Assessment/Plan 1) Acute on chronic combined systolic (congestive) and diastolic (congestive) heart failure Patient has moderately reduced LVFEF with Diastolic dysfunctions, Cont IV Lasix 40mg daily, low salt Diet, Coreg 3.25 mg BID, Entresto, Aldactone F/U BMP daily , ECHO and Cardiology consult. (2) HTN (hypertension) Well controlled cont all home medications (3) Mitral regurgitation Chronic F/U CHF management (4) Pulmonary HTN Secondary to valvular disease and CHF (5) CAD: Patient opted for medical management
[2016-10-12] MEDS ORDERED: PT OWN MED DRAWER 7, Y5N ONE (22:01)
[2016-10-12] MEDS: MIRTAZAPINE 15 MG TABLET (FP) PO SCH (22:03)
[2016-10-13 07:46] VITALS: BP 99/73; PULSE 91; TEMP 98
[2016-10-13 08:41] LABS: MAGNESIUM 2.2 mg/dL (1.8-2.4)
[2016-10-13] MEDS: SACUBITRIL/VALSARTAN 49 MG-51 MG TABLET PO SCH (09:17)
[2016-10-13] MEDS: CARVEDILOL 3.125 MG TABLET (FP) PO SCH (09:18)
[2016-10-13] MEDS: ENOXAPARIN NA (PORCINE) 30 MG/0.3 ML DISP.SYRIN SQ SCH (09:18)
[2016-10-13] MEDS: ASPIRIN 81 MG CHEWABLE TABLETS PO SCH (09:18)
[2016-10-13] MEDS ORDERED: FUROSEMIDE 40 MG TABLET (FP) PO SCH (10:00)
[2016-10-13 10:31] LABS: ALBUMIN 3.1 g/dl (3.4-5.0); ANION GAP 11 (8-16); BILIRUBIN,TOTAL 0.5 mg/dL (0.2-1.0); CALCIUM 9.2 mg/dL (8.5-10.1); CO2 28 mmol/L (21-32); CREATININE 0.7 mg/dL (0.55-1.02); GLUCOSE,RANDOM 88 mg/dL (74-106); SGOT/AST 14 U/L (15-37); SGPT/ALT 26 U/L (12-78); TOT PROT 6.4 g/dl (6.4-8.2)
--- NOTE | 2016-10-13 11:48 | DS ---
Physical Examination Vital Signs: Vital Signs Temperature 98 F 10/13/16 07:45 Pulse Rate 91 H 10/13/16 07:45 Respiratory Rate 20 10/13/16 08:00 Blood Pressure 99/73 10/13/16 07:45 O2 Sat by Pulse Oximetry (%) 98 10/13/16 08:00 Findings/Remarks: 85 yrs old F with H/O HTn, CAd opted for medical management, combined systolic and diastolic HF, Dyslipedemia, present with decompensated HF due to non compliance to diuretic admitted with elevated BNP and volume over load, patient is evaluated by Cardiology consult, received IV Lasix for diuresis is being discharged home on PO lasix, feels improved. [id number] stable. 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 Labs: CBC, BMP 10/12/16 05:35 10/13/16 05:40 Discharge Summary Reason For Visit: SOB ON EXERTTION,CONGESTIVE HEART FAILURE Current Active Problems Acute on chronic combined systolic (congestive) and diastolic (congestive) heart failure (Acute) CAD (coronary artery disease) (Acute) CHF (congestive heart failure) (Acute) Shortness of breath on exertion (Acute) Condition: Fair - Instructions Diet, Activity, Other Instructions: Low salt low Cholesterol diet Referrals: Savanna Stallings MD [Staff Physician] - 1 Week Juan Saunders MD [Staff Physician] - 1 Week Disposition: HOME - Home Medications Comprehensive Discharge Medication List: Ambulatory Orders Aspirin [ASA -] 81 mg PO DAILY 03/07/15 Mirtazapine 7.5 mg PO HS 06/07/15 Carvedilol [Coreg -] 3.125 mg PO DAILY #30 tablet 06/13/15 Furosemide [Lasix -] 40 mg PO DAILY tablet 10/12/16 Sacubitril/Valsartan [Entresto 49 mg-51 mg Tablet] 1 tab PO BID tablet Spironolactone [Aldactone -] 25 mg PO DAILY tablet 10/12/16 Quality Measures-Exclusions - Heart Failure Reason LVF assessment not done: Prior echocardiogram done, Assess on follow-up ( Patient is on Entresto)
--- NOTE | 2016-10-13 12:55 | PN ---
Progress Note, Physician Chief Complaint: Feels better this am Not in distress BP lower end but stable History of Present Illness: Patient was seen and examined. Awake and alert. Chart was reviewed Denies chest pain or palpitations breathing comfortable - Current Medication List Current Medications: Active Medications Aspirin (Asa -) 81 mg PO DAILY [facility] Last Admin: 10/13/16 09:18 Dose: 81 mg Carvedilol (Coreg -) 3.125 mg PO DAILY [facility] Last Admin: 10/13/16 09:18 Dose: 3.125 mg Enoxaparin Sodium (Lovenox -) 30 mg SQ DAILY [facility] Last Admin: 10/13/16 09:18 Dose: 30 mg Furosemide (Lasix -) 40 mg PO DAILY [facility] Last Admin: 10/13/16 09:17 Dose: 40 mg Mirtazapine (Remeron -) 7.5 mg PO HS [facility] Last Admin: 10/12/16 22:03 Dose: 7.5 mg - Objective Vital Signs: Vital Signs Temperature 98 F 10/13/16 07:45 Pulse Rate 91 H 10/13/16 07:45 Respiratory Rate 20 10/13/16 08:00 Blood Pressure 99/73 10/13/16 07:45 O2 Sat by Pulse Oximetry (%) 98 10/13/16 08:00 Neck: Yes: Supple Cardiovascular: Yes: Regular Rate and Rhythm, Murmur (2/6 SM apex and LSB), S1, S2 Respiratory: Yes: Diminished Gastrointestinal: Yes: Normal Bowel Sounds, Soft. No: Tenderness Edema: No Additional Findings/Remarks: - Review of Systems Constitutional: denies: Chills, Fever Cardiovascular: reports: Shortness of Breath - improved. denies: Chest Pain, Palpitations Respiratory: reports: SOB, SOB on Exertion - improved. denies: Cough, Hemoptysis, Orthopnea, PND, Wheezing Gastrointestinal: denies: Abdominal Pain, Constipation, Diarrhea, Melena, Nausea , Rectal Bleeding, Vomiting Genitourinary: denies: Dysuria Musculoskeletal: reports: Joint Pain Neurological: reports: Unsteady Gait, Weakness. denies: Dizziness, Headache, Numbness, Seizure, Syncope Labs: CBC, BMP 10/12/16 05:35 10/13/16 05:40 Problem List - Problems (1) Acute on chronic combined systolic (congestive) and diastolic (congestive) heart failure Code(s): I50.43 - ACUTE ON CHRONIC COMBINED SYSTOLIC AND DIASTOLIC HRT FAIL (2) CHF (congestive heart failure) Code(s): I50.9 - HEART FAILURE, UNSPECIFIED Qualifiers: Congestive heart failure type: combined Congestive heart failure chronicity: acute on chronic Qualified Code(s): I50.43 - Acute on chronic combined systolic (congestive) and diastolic (congestive) heart failure (3) HTN (hypertension) Code(s): I10 - ESSENTIAL (PRIMARY) HYPERTENSION Qualifiers: Hypertension type: essential hypertension Qualified Code(s): I10 - Essential (primary) hypertension (4) Mitral regurgitation Code(s): I34.0 - NONRHEUMATIC MITRAL (VALVE) INSUFFICIENCY Qualifiers: Cardiac valve disease etiology: nonrheumatic Qualified Code(s): I34.0 - Nonrheumatic mitral (valve) insufficiency (5) Pulmonary HTN Code(s): I27.2 - OTHER SECONDARY PULMONARY HYPERTENSION (6) Tricuspid regurgitation Code(s): I07.1 - RHEUMATIC TRICUSPID INSUFFICIENCY Qualifiers: Cardiac valve disease etiology: nonrheumatic Qualified Code(s): I36.1 - Nonrheumatic tricuspid (valve) insufficiency (7) CAD (coronary artery disease) Code(s): I25.10 - ATHSCL HEART DISEASE OF [place] CORONARY ARTERY W/O ANG PCTRS Qualifiers: Coronary Disease-Associated Artery/Lesion type: [place] artery [place] vs. transplanted heart: [place] heart Associated angina: without angina Qualified Code(s): I25.10 - Atherosclerotic heart disease of [place] coronary artery without angina pectoris Assessment/Plan 1. Acute on chronic LV systolic and diastolic hear failure - Class II-III NYHA classification LV failure - improving 2. 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 Severely reduced LVEF 4. Mitral valve regurgitation - severe 5. Tricuspid valve regurgitation - severe with moderate pulmonary HTN 6. HTN/HCVD PLAN: 1. PO Lasix and monitor I/Os and daily weight 2. Continue Entresto 49/51 mg twice a day 3. Continue Carvedilol - currently at 3.125 mg daily - recommend to increase it to 3.125 mg twice a day 4. Continue ASA 81 mg once a day 5. Stop Spironolactone 6. Echocardiography report reviewed - mild to moderate LV systolic dysfunction, severe MR and TR, moderate pulmonary HTN, cannot rule out , mild pulmonic valve regurgitation Further plans are to follow and follow up in office (Dr. Saunders) Juan Saunders MD
[2016-10-13 15:17] LABS: ALK PHOS 74 U/L (45-117)
== END 2016-10-13 13:17 | disposition home or self-care (01) | DRG 293 ==
LOC: JER 17:17 → JERBED 21:50 → J4W 10-10 02:58
PROVIDERS: ADMIT Internal Medicine; ATTEND Internal Medicine
DX: I11.0 Hypertensive heart disease with heart failure (principal); I50.43 Acute on chronic combined systolic (congestive) and diastolic (congestive) heart failure; I34.0 Nonrheumatic mitral (valve) insufficiency; I27.2 Other secondary pulmonary hypertension; I25.10 Atherosclerotic heart disease of native coronary artery without angina pectoris; R26.81 Unsteadiness on feet; R01.1 Cardiac murmur, unspecified; I36.1 Nonrheumatic tricuspid (valve) insufficiency
CPT/HCPCS: 36415; 71020-TC; 80048; 80053; 81003; 81015; 82550; 83735; 83880; 84484; 85025; 85027; 87086; 87186; 93005; 93010; 93306-TC; 99285-25

== ENCOUNTER 2018-09-14 13:34 | Inpatient (IN) | payer OTHER, BC ==
[2018-09-14 13:48] VITALS: BMI 21.4
--- NOTE | 2018-09-14 14:07 | PDOC ---
History of Present Illness - General Chief Complaint: Shortness of Breath Stated Complaint: SOB Time Seen by Provider: 09/14/18 14:07 - History of Present Illness Initial Comments: 87 year old female with PMH of HTN, CAD , combined systolic and diastolic HF, dyslipedemia, present with SOB and lower extremity swelling for the past few days. States that she stopped taking her Lasix because it was making her urinate so frequently. She last saw Dr. Juan Saunders (cards) a few months prior in May without any alteration to her medications. She also has a dry cough. denies fever, chills, nausea, vomiting, diarrhea, constipation, or other symptoms. 09/14/18 14:13 Past History - Past Medical History Allergies/Adverse Reactions: Allergies Allergy/AdvReac Type Severity Reaction Status Date / Time No Known Drug Allergies Allergy Verified 09/14/18 13:48 Home Medications: Ambulatory Orders Aspirin [ASA -] 81 mg PO DAILY 03/07/15 Mirtazapine 7.5 mg PO HS 06/07/15 Carvedilol [Coreg -] 3.125 mg PO DAILY #30 tablet 06/13/15 Furosemide [Lasix -] 40 mg PO DAILY tablet 10/12/16 Sacubitril/Valsartan [Entresto 49 mg-51 mg Tablet] 1 tab PO BID tablet Spironolactone [Aldactone -] 25 mg PO DAILY tablet 10/12/16 Anemia: No Asthma: No Cancer: Yes (CA UTERUS) Cardiac Disorders: No CVA: No COPD: No CHF: Yes Dementia: No Diabetes: No GI Disorders: No Disorders: Yes (KIDNEY STONES) HTN: Yes Hypercholesterolemia: Yes Liver Disease: No Seizures: No Thyroid Disease: No - Surgical History Abdominal Surgery: Yes (HERNIA) Appendectomy: Yes - Suicide/Smoking/Psychosocial Hx Smoking History: Never smoked Have you smoked in the past 12 months: No Information on smoking cessation initiated: No Hx Alcohol Use: No Drug/Substance Use Hx: No Substance Use Type: None Review of Systems - Review of Systems Constitutional: No: Chills, Diaphoresis, Fever HEENTM: No: Eye Pain, Blurred Vision, Tearing Respiratory: Yes: Cough, Shortness of Breath. No: Productive cough Cardiac (ROS): Yes: Edema. No: Chest Pain, Irregular Heart Rate, Lightheadedness, Palpitations, Syncope ABD/GI: No: Constipated, Diarrhea, Nausea, Vomiting : No: Dysuria, Discharge, Frequency Musculoskeletal: No: Back Pain, Gout, Joint Pain Integumentary: No: Bruising, Erythema, Flushing Neurological: No: Headache, Numbness, Paresthesia Psychiatric: No: Anxiety, Depression Hematologic/Lymphatic: No: Anemia, Blood Clots, Easy Bleeding *Physical Exam - Vital Signs Last Vital Signs Temp Pulse Resp BP Pulse Ox 98.3 F 95 H 18 123/77 95 09/14/18 13:46 09/14/18 13:46 09/14/18 13:46 09/14/18 13:46 09/14/18 13:46 - Physical Exam General Appearance: Yes: Nourished, Appropriately Dressed. No: Apparent Distress HEENT: positive: EOMI, DOTTY, Normal ENT Inspection, Normal Voice Neck: positive: Trachea midline, Normal Thyroid, Supple. negative: Tender, Rigid Respiratory/Chest: positive: Respiratory Distress, Labored Respiration, Rapid RR. negative: Chest Tender, Lungs Clear, Normal Breath Sounds (crackles to mid lung stover bilaterally) Cardiovascular: positive: Regular Rhythm, Regular Rate, Edema (bl LE 1+ pitting edema bilaterally) Gastrointestinal/Abdominal: positive: Normal Bowel Sounds, Flat, Soft. negative : Tender Lymphatic: negative: Adenopathy, Tenderness Musculoskeletal: negative: Normal Inspection, Decreased Range of Motion Extremity: positive: Normal Range of Motion, Swelling. negative: Normal Inspection Integumentary: positive: Normal Color, Dry, Warm, Swelling Neurologic: positive: Fully Oriented, Alert, Normal Mood/Affect, Normal Response , Motor Strength 5/5 ED Treatment Course - LABORATORY CBC & Chemistry Diagram: 09/14/18 14:32 09/14/18 14:32 Medical Decision Making - Medical Decision Making 87 year old female with CHF presenting with SOB and bilateral crackles with CXR showing fluid overload and increased BNP with trop 0.06. Consistent with pulmonary edema and acute on chronic heart failure. Resting comfortably on NC 4L with 100% sats after 94% Sat noticed on RA. Given Lasix 40 with good urine output (500 cc). There was question of a possible new RBBB noticed on her EKG ( rate 99, MS 198., QRS 122, QTc 503, with normal axis) but we discussed with Dr. Ciaran Olmedo on the phone and he confirmed that she had a RBBB on her EKG in the office of Dr. Saunders in 05/2018. Admitted under the care of Dr. Stallings for tele admission. 09/14/18 16:07 *DC/Admit/Observation/Transfer Diagnosis at time of Disposition: Acute on chronic left systolic heart failure - Discharge Dispostion Condition at time of disposition: Stable Decision to Admit order: Yes - Referrals - Patient Instructions - Post Discharge Activity
[2018-09-14] MEDS ORDERED: FUROSEMIDE 40 MG/4 ML INJECTABLE VIAL IVPUSH ONE (14:43)
--- NOTE | 2018-09-14 14:59 | PDOC ---
Documentation entered by Marti Patel SCRIBE, acting as scribe for Dariana Wilde MD. Dariana Wilde MD: This documentation has been prepared by the Amanda redman Amanda, SCRIBE, under my direction and personally reviewed by me in its entirety. I confirm that the documentation accurately reflects all work, treatment, procedures, and medical decision making performed by me. Attending Attestation - Resident Resident Name: Ivis Torrescatrachopeter - ED Attending Attestation I have performed the following: I have examined & evaluated the patient, The case was reviewed & discussed with the resident, I agree w/resident's findings & plan, Exceptions are as noted - HPI HPI: 09/14/18 14:55 The patient is a 87 year old female with a significant past medical history of HTN, CAD, combined systolic and diastolic HF, Dyslipedemia, who presents to the ED with complaint of shortness of breath today. She denies CP, palpitations, dizziness, lightheadedness. The patient denies abdominal pain. The patient denies fevers, chills, n/v/d. - Physicial Exam PE: 09/14/18 14:58 GENERAL: The patient is in no acute distress. ENT: Ears normal, nares patent, oropharynx clear without exudates. Moist mucous membranes. No tonsillar enlargement, no exudates NECK: Normal range of motion, supple, no nuchal rigidity LUNGS: Breath sounds equal, decreased breath sounds at the bases, crackles bilaterally HEART:Regular rate and rhythm, normal S1 and S2 without murmur, rub or gallop. ABDOMEN: Soft, nontender, normoactive bowel sounds. EXTREMITIES: Normal range of motion, no edema. NEUROLOGICAL: Cranial nerves II through XII grossly intact. Normal speech. No focal neurological deficits. SKIN: Warm, Dry, normal turgor, no rashes or lesions noted. - Medical Decision Making 87 yo F presenting to the ER with a complaint of shortness of breath Pt has missed several doses of her lasix 09/14/18 16:00 Laboratory Tests 09/14/18 09/14/18 09/14/18 14:32 14:32 14:32 WBC 5.1 Hgb 12.2 Hct 36.2 Plt Count 241 INR 1.11 H BUN 22 H Creatinine 0.6 Creatine Kinase 57 Troponin I 0.06 H B-Natriuretic Peptide 9441.7 H 09/14/18 17:57 EKG - SR rate of 99 bpm, axis nml, intervals abnormal (pr:198ms, QRS:122ms prolonged, QTc:503ms prolonged), RBBB, no st elevation or depression 09/14/18 17:58 CXR - CARDIOMEGALY, fluid overloading 09/14/18 18:01 Given Lasix 40mg IV Will plan to admit Cardiology consult Clinical impression: CHF, initial presentation
[2018-09-14 15:04] LABS: BASO % 0.9 % (0-2.0); EOS % 0.9 % (0-4.5); HEMATOCRIT 36.2 % (32.4-45.2); HEMOGLOBIN 12.2 GM/dL (10.7-15.3); LYMPH % 22.5 % (8-40); MCH 31.1 pg (25.7-33.7); MCHC 33.6 g/dl (32.0-36.0); MEAN CELL VOLUME 92.5 fl (80-96); MEAN PLT VOLUME 8.8 fl (7.5-11.1); MONO % 8.2 % (3.8-10.2); NEUT % 67.5 % (42.8-82.8); PLATELET COUNT 241 K/MM3 (134-434); RBC 3.92 M/mm3 (3.60-5.2); RDW 15.2 % (11.6-15.6); WHITE BLOOD COUNT 5.1 K/mm3 (4.0-10.0)
[2018-09-14] MEDS ORDERED: FUROSEMIDE 40 MG/4 ML INJECTABLE VIAL ONE (15:08)
--- NOTE | 2018-09-14 15:13 | EKG ---
Test Reason : Blood Pressure : / mmHG Vent. Rate : 099 BPM Atrial Rate : 099 BPM P-R Int : 198 ms QRS Dur : 122 ms QT Int : 392 ms P-R-T Axes : 071 017 066 degrees QTc Int : 503 ms SINUS RHYTHM WITH PREMATURE ATRIAL COMPLEXES POSSIBLE LEFT ATRIAL ENLARGEMENT RIGHT BUNDLE BRANCH BLOCK CANNOT RULE OUT ANTEROSEPTAL INFARCT (CITED ON OR BEFORE 09-MAY-2015) ABNORMAL ECG WHEN COMPARED WITH ECG OF 09-OCT-2016 17:30, RIGHT BUNDLE BRANCH BLOCK IS NOW PRESENT QUESTIONABLE CHANGE IN INITIAL FORCES OF ANTEROSEPTAL LEADS Confirmed by KAREN MARITN, SULEMA ([id number]) on 09/14/2018 3:12:39 PM Referred By: Confirmed By:SULEMA JONES MD
[2018-09-14 15:19] LABS: INR 1.11 (0.83-1.09); PROTHROMBIN TIME (PATIENT) 13.1 SEC (9.7-13.0)
[2018-09-14 15:42] LABS: ALBUMIN 3.6 g/dl (3.4-5.0); ALK PHOS 97 U/L (45-117); ANION GAP 7 MMOL/L (8-16); BILIRUBIN,TOTAL 0.8 mg/dL (0.2-1); BLOOD UREA NITROGEN 22 mg/dL (7-18); CALCIUM 9.2 mg/dL (8.5-10.1); CHLORIDE 104 mmol/L (98-107); CO2 25 mmol/L (21-32); CREATININE 0.6 mg/dL (0.55-1.3); GLUCOSE,RANDOM 111 mg/dL (74-106); N-TERMINAL BNP 9441.7 pg/ml (5-450); POTASSIUM 4.3 mmol/L (3.5-5.1); SGOT/AST 19 U/L (15-37); SGPT/ALT 43 U/L (13-61); SODIUM 136 mmol/L (136-145); TOT PROT 7.1 g/dl (6.4-8.2)
[2018-09-14] MEDS ORDERED: ASPIRIN 81 MG CHEWABLE TABLETS PO ONE (15:46)
--- NOTE | 2018-09-14 16:02 | CON.CARD ---
Consult Consult Specialty:: Cardiology Referred by:: ER Reason for Consultation:: CHF - History of Present Illness Chief Complaint: [place], orthopnea History of Present Illness: Patient is an 85 year old female with underlying history of HTN/HCVD, CAD, history of acute on chronic LV systolic and diastolic failure, 12/17/2016 echo moderately reduced LV systolic function with segmental wall motion abnormality, moderate to severe mitral valve regurgitation, moderate to severe tricuspid valve regurgitation, moderate pulmonary hypertension, 07/03/2015 abnormal nuclear myocardial perfusion - large zone of anteroapical and periapical fixed defect c/w infarct with small chaparro-infarct ischemia and severely reduced LVEF of 36%, 07/18/2015 cardiac catheterization revealing 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 Resting thallium showed some viability at the apical segment. Patient was opted to be treated medically after full discussions in the office regarding treatment options. Since last visit 06/03/2018, patient presents with progressive shortness of breath with exertion, orthopnea, positional dizziness without true syncope in context of self d/c Lasix over past several weeks and use of OTC Alleve for right knee arthralgias. She denies chest pain or palpitations. She denies paroxysmal nocturnal dyspnea or LE edema. - History Source History Provided By: Patient Limitations to Obtaining History: No Limitations - Past Medical History Cardio/Vascular: Yes: CHF, HTN - Alcohol/Substance Use Hx Alcohol Use: No - Smoking History Smoking history: Never smoked Have you smoked in the past 12 months: No Home Medications - Allergies Allergies/Adverse Reactions: Allergies Allergy/AdvReac Type Severity Reaction Status Date / Time No Known Drug Allergies Allergy Verified 09/14/18 13:48 - Home Medications Home Medications: Ambulatory Orders Aspirin [ASA -] 81 mg PO DAILY 03/07/15 Carvedilol [Coreg -] 3.125 mg PO DAILY #30 tablet 06/13/15 Sacubitril/Valsartan [Entresto 49 mg-51 mg Tablet] 1 tab PO BID tablet Family Disease History - Family Disease History Family Disease History: Heart Disease: Mother Review of Systems - Review of Systems Respiratory: reports: Orthopnea, SOB on Exertion Vital Signs: Vital Signs Temperature 98.3 F 09/14/18 13:46 Pulse Rate 95 H 09/14/18 13:46 Respiratory Rate 18 09/14/18 13:46 Blood Pressure 123/77 09/14/18 13:46 O2 Sat by Pulse Oximetry (%) 95 09/14/18 13:46 Constitutional: Yes: No Distress, Calm, Thin Neck: Yes: Supple Respiratory: Yes: Regular, Diminished, On Nasal O2 Gastrointestinal: Yes: Soft, Hypoactive Bowel Sounds Cardiovascular: Yes: Regular Rate and Rhythm JVD: No Carotid Bruit: No Heart Sounds: Yes: S1, S2 Murmur: Yes: Systolic Murmur, Grade 2 Edema: Yes Edema: LLE: Trace, RLE: Trace - Other Data Labs, Other Data: CBC, BMP 09/14/18 14:32 09/14/18 14:32 INR, PTT INR 1.11 (0.83-1.09) H 09/14/18 14:32 Troponin, BNP 09/14/18 14:32 Troponin I 0.06 H B-Natriuretic Peptide 9441.7 H Troponin, BNP 09/14/18 14:32 Troponin I 0.06 H B-Natriuretic Peptide 9441.7 H NSR RBBB, PAC c/w previous 06/03/2018, PAC now seen Ejection Fraction %: LVEF < 40 % Imaging - Results Chest X-ray: Report Reviewed (Congestion with bilateral effusions) EKG: Report Reviewed (NSR @ 99, possible LAE PAC RBBB, c/w previous 06/14/2018, PAC now seen) Problem List - Problems (1) Subendocardial ischemia Code(s): I24.8 - OTHER FORMS OF ACUTE ISCHEMIC HEART DISEASE (2) Nonadherence to medication Code(s): Z91.14 - PATIENT'S OTHER NONCOMPLIANCE WITH MEDICATION REGIMEN (3) Acute on chronic combined systolic (congestive) and diastolic (congestive) heart failure Code(s): I50.43 - ACUTE ON CHRONIC COMBINED SYSTOLIC AND DIASTOLIC HRT FAIL (4) CAD (coronary artery disease) Code(s): I25.10 - ATHSCL HEART DISEASE OF [place] CORONARY ARTERY W/O ANG PCTRS Qualifiers: Coronary Disease-Associated Artery/Lesion type: [place] artery [place] vs. transplanted heart: [place] heart Associated angina: without angina Qualified Code(s): I25.10 - Atherosclerotic heart disease of [place] coronary artery without angina pectoris (5) HTN (hypertension) Code(s): I10 - ESSENTIAL (PRIMARY) HYPERTENSION Qualifiers: Hypertension type: essential hypertension Qualified Code(s): I10 - Essential (primary) hypertension (6) Shortness of breath on exertion Code(s): R06.02 - SHORTNESS OF BREATH Assessment/Plan 12/19/2017 Echo: Normal LV size with mild LVH mod decreased LV systolic function , abnl LV compliance, mod LAE, mild LANEY, mild BRO, normal RV size with borderline reduced RV fxn, mild , mod MR, mod TR, mild [place] RVSP 26 mmHg 1. Acute on chronic LV moderate decreased systolic and diastolic heart failure in context of medication noncompliance and NSAID use 2. 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 HTN/HCVD PLAN: 1. IV diuresis with monitor diuretic response, renal fxn and electrolytes 2. Continue Entresto 49/51 mg twice a day 3. Continue Carvedilol 12.5 bid 4. Continue ASA 81 mg once a day 5. Trend trops to document peak, check TSH and lipid panel 6. Thank you for consultative opportunity, emphasized importance of medication and diet compliance
[2018-09-14] MEDS ORDERED: ASPIRIN 81 MG CHEWABLE TABLETS ONE (16:24)
--- NOTE | 2018-09-14 19:33 | HP ---
DATE OF ADMISSION: 09/14/2018 This is an 87-year-old female known to have CHF, hypertension, coronary artery disease, LV dysfunction, who came to the emergency room with complaints of shortness of breath, getting worse for the last 4 to 5 days. She is supposed to take her medications of Lasix, Coreg and . Sometimes she was not taking her water pills. After coming to the ER, she felt better after she got Lasix IV. At this time, around 7 p.m. when I saw her, she is comfortable in the bed. PHYSICAL EXAMINATION: Vital Signs: BP 130/80, pulse 88, respirations 20, temperature 98. HEENT: Unremarkable. Neck: Supple. No JVD. Lungs: Bibasilar rales present. Heart: S1 and S2 normal. No S3 or S4. Extremities: Legs with edema present. Neurological: Examination grossly normal. LABORATORY REPORTS: Electrolytes are normal. Blood sugar 111, sodium 136. Her troponin is 0.06. B natriuretic peptide is 9441. WBC 5.1, hemoglobin 12.2, platelets 241. Chest x-ray: Bilateral congestion present. Maybe minimal effusion in the right base. IMPRESSION: 1. Congestive heart failure, acute exacerbation. 2. Atherosclerotic heart disease. PLAN: Cardiology consultation. Continue her present medications. Will follow. CRISTIANA FRAUSTO M.D. [id number]
[2018-09-14] MEDS ORDERED: CARVEDILOL 12.5 MG TABLET (FP) ONE (22:16)
[2018-09-14] MEDS: CARVEDILOL 12.5 MG TABLET (FP) PO SCH (22:19)
[2018-09-14] MEDS: SACUBITRIL/VALSARTAN 49 MG-51 MG TABLET PO SCH (23:31)
[2018-09-15] MEDS ORDERED: FUROSEMIDE 40 MG/4 ML INJECTABLE VIAL ONE (06:18)
[2018-09-15] MEDS: FUROSEMIDE 40 MG/4 ML INJECTABLE VIAL IVPUSH SCH ×2 (06:22→15:33)
[2018-09-15 09:03] LABS: ANION GAP 6 MMOL/L (8-16); BLOOD UREA NITROGEN 21 mg/dL (7-18); CALCIUM 9.4 mg/dL (8.5-10.1); CHLORIDE 102 mmol/L (98-107); CHOLESTEROL 206 mg/dL (50-200); CO2 31 mmol/L (21-32); CREATININE 0.8 mg/dL (0.55-1.3); GLUCOSE,RANDOM 103 mg/dL (74-106); HDL CHOLESTEROL 63 mg/dL (40-60); POTASSIUM 4.2 mmol/L (3.5-5.1); SODIUM 139 mmol/L (136-145); TRIGLYCERIDES 89 mg/dL (0-150)
--- NOTE | 2018-09-15 09:37 | PN ---
Progress Note, Physician Chief Complaint: SOB better History of Present Illness: Admitted with CHF - Current Medication List Current Medications: Active Medications Aspirin (Asa -) 81 mg PO DAILY [facility] Carvedilol (Coreg -) 12.5 mg PO BID [facility] Last Admin: 09/14/18 22:19 Dose: 12.5 mg Furosemide (Lasix Injection -) 40 mg IVPUSH BID@0600,1400 [facility] Last Admin: 09/15/18 06:22 Dose: 40 mg Sacubitril/Valsartan (Entresto 49 Mg-51 Mg Tablet) 1 tab PO BID [facility] Last Admin: 09/14/18 23:31 Dose: 1 tab - Objective Vital Signs: Vital Signs Temperature 98.3 F 09/14/18 13:46 Pulse Rate 95 H 09/14/18 13:46 Respiratory Rate 18 09/14/18 13:46 Blood Pressure 123/77 09/14/18 13:46 O2 Sat by Pulse Oximetry (%) 95 09/14/18 13:46 Constitutional: Yes: Anxious Eyes: Yes: WNL HENT: Yes: WNL Neck: Yes: WNL Cardiovascular: Yes: Regular Rate and Rhythm Respiratory: Yes: Rales Gastrointestinal: Yes: Normal Bowel Sounds Genitourinary: Yes: WNL Edema: LLE: 1+, RLE: 1+ Psychiatric: Yes: Alert Labs: CBC, BMP 09/14/18 14:32 09/15/18 07:20 INR, PTT INR 1.11 (0.83-1.09) H 09/14/18 14:32 Assessment/Plan admit to regular floor
[2018-09-15] MEDS: ASPIRIN 81 MG CHEWABLE TABLETS PO SCH (10:28)
[2018-09-15] MEDS: SACUBITRIL/VALSARTAN 49 MG-51 MG TABLET PO SCH ×2 (10:29→22:00)
[2018-09-15] MEDS: CARVEDILOL 12.5 MG TABLET (FP) PO SCH ×2 (10:29→21:28)
--- NOTE | 2018-09-15 11:23 | PN ---
Progress Note, Physician History of Present Illness: Shortness of breath with exertion, orthopnea improving with diuresis. - Current Medication List Current Medications: Active Medications Aspirin (Asa -) 81 mg PO DAILY [facility] Last Admin: 09/15/18 10:28 Dose: 81 mg Carvedilol (Coreg -) 12.5 mg PO BID [facility] Last Admin: 09/15/18 10:29 Dose: 12.5 mg Furosemide (Lasix Injection -) 40 mg IVPUSH BID@0600,1400 [facility] Last Admin: 09/15/18 06:22 Dose: 40 mg Sacubitril/Valsartan (Entresto 49 Mg-51 Mg Tablet) 1 tab PO BID [facility] Last Admin: 09/15/18 10:29 Dose: 1 tab - Objective Vital Signs: Vital Signs Temperature 98.0 F 09/15/18 10:27 Pulse Rate 75 09/15/18 10:27 Respiratory Rate 18 09/15/18 10:27 Blood Pressure 115/68 09/15/18 10:27 O2 Sat by Pulse Oximetry (%) 96 09/15/18 09:07 Constitutional: Yes: No Distress, Calm, Thin Neck: Yes: Supple Cardiovascular: Yes: Regular Rate and Rhythm Respiratory: Yes: Regular, Diminished Gastrointestinal: Yes: Normal Bowel Sounds, Soft Edema: No Labs: CBC, BMP 09/14/18 14:32 09/15/18 07:20 INR, PTT INR 1.11 (0.83-1.09) H 09/14/18 14:32 Problem List - Problems (1) Subendocardial ischemia Code(s): I24.8 - OTHER FORMS OF ACUTE ISCHEMIC HEART DISEASE (2) Nonadherence to medication Code(s): Z91.14 - PATIENT'S OTHER NONCOMPLIANCE WITH MEDICATION REGIMEN (3) Acute on chronic combined systolic (congestive) and diastolic (congestive) heart failure Code(s): I50.43 - ACUTE ON CHRONIC COMBINED SYSTOLIC AND DIASTOLIC HRT FAIL (4) CAD (coronary artery disease) Code(s): I25.10 - ATHSCL HEART DISEASE OF [place] CORONARY ARTERY W/O ANG PCTRS Qualifiers: Coronary Disease-Associated Artery/Lesion type: [place] artery [place] vs. transplanted heart: [place] heart Associated angina: without angina Qualified Code(s): I25.10 - Atherosclerotic heart disease of [place] coronary artery without angina pectoris (5) HTN (hypertension) Code(s): I10 - ESSENTIAL (PRIMARY) HYPERTENSION Qualifiers: Hypertension type: essential hypertension Qualified Code(s): I10 - Essential (primary) hypertension (6) Shortness of breath on exertion Code(s): R06.02 - SHORTNESS OF BREATH Assessment/Plan 12/19/2017 Echo: Normal LV size with mild LVH mod decreased LV systolic function , abnl LV compliance, mod LAE, mild LANEY, mild BRO, normal RV size with borderline reduced RV fxn, mild , mod MR, mod TR, mild [place] RVSP 26 mmHg 1. Acute on chronic LV moderate decreased systolic and diastolic heart failure in context of medication noncompliance and NSAID use 2. 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 HTN/HCVD 4. Hyperlipidemia PLAN: 1. IV diuresis with monitor diuretic response, renal fxn and electrolytes 2. Continue Entresto 49/51 mg twice a day 3. Continue Carvedilol 12.5 bid 4. Continue ASA 81 mg once a day, add Lipitor 20 qd for goal LDL<100 5. Trops downtrending 6. Emphasized importance of medication and diet compliance
[2018-09-15 17:55] LABS: EPI CELLS 2.1 /HPF (0-5/HPF); PH,URINE 7.5 (5.0-8.0); URINE APPEARANCE CLEAR; URINE BACTERIA 3528.1 /hpf (NEGATIVE); URINE BILIRUBIN NEGATIVE (NEGATIVE); URINE CASTS 1 /lpf (0-8); URINE COLOR YELLOW; URINE GLUCOSE (UA) NEGATIVE (NEGATIVE); URINE KETONE NEGATIVE (NEGATIVE); URINE LEUK ESTERASE 2+ (NEGATIVE); URINE NITRITE NEGATIVE (NEGATIVE); URINE PROTEIN NEGATIVE (NEGATIVE); URINE RBC 1 /hpf (0-4); URINE UROBILINOGEN 0.2 mg/dL (0.2-1.0); URINE WBC 9 /hpf (0-5)
[2018-09-15] MEDS ORDERED: PT OWN MED DRAWER 7, Y5N ONE (21:15)
[2018-09-15] MEDS: ATORVASTATIN CA 20 MG TABLET (FP) PO SCH (21:28)
[2018-09-16] MEDS: FUROSEMIDE 40 MG/4 ML INJECTABLE VIAL IVPUSH SCH ×2 (05:20→14:21)
[2018-09-16] MEDS ORDERED: PT OWN MED DRAWER 7, Y5N ONE (09:16)
--- NOTE | 2018-09-16 09:19 | PN ---
Progress Note, Physician Chief Complaint: sob persists History of Present Illness: Admitted with exacerbation of CHF - Current Medication List Current Medications: Active Medications Aspirin (Asa -) 81 mg PO DAILY [facility] Last Admin: 09/15/18 10:28 Dose: 81 mg Atorvastatin Calcium (Lipitor -) 20 mg PO HS [facility] Last Admin: 09/15/18 21:28 Dose: 20 mg Carvedilol (Coreg -) 12.5 mg PO BID [facility] Last Admin: 09/15/18 21:28 Dose: 12.5 mg Furosemide (Lasix Injection -) 40 mg IVPUSH BID@0600,1400 [facility] Last Admin: 09/16/18 05:20 Dose: 40 mg Sacubitril/Valsartan (Entresto 49 Mg-51 Mg Tablet) 1 tab PO BID [facility] Last Admin: 09/15/18 22:00 Dose: 1 tab - Objective Vital Signs: Vital Signs Temperature 97.6 F 09/16/18 06:00 Pulse Rate 61 09/16/18 06:00 Respiratory Rate 20 09/16/18 06:00 Blood Pressure 96/51 L 09/16/18 06:00 O2 Sat by Pulse Oximetry (%) 96 09/15/18 09:07 Constitutional: Yes: Anxious Eyes: Yes: WNL HENT: Yes: WNL Cardiovascular: Yes: Regular Rate and Rhythm Respiratory: Yes: Rales Gastrointestinal: Yes: WNL ...Rectal Exam: Yes: Deferred Genitourinary: Yes: WNL Breast(s): Yes: WNL Musculoskeletal: Yes: WNL Edema: No Neurological: Yes: Alert Psychiatric: Yes: Alert Labs: CBC, BMP 09/14/18 14:32 09/15/18 07:20 INR, PTT INR 1.11 (0.83-1.09) H 09/14/18 14:32 Assessment/Plan Rpt Xray chest
[2018-09-16] MEDS: ASPIRIN 81 MG CHEWABLE TABLETS PO SCH (09:28)
[2018-09-16] MEDS: CARVEDILOL 12.5 MG TABLET (FP) PO SCH ×2 (09:28→21:32)
[2018-09-16] MEDS: SACUBITRIL/VALSARTAN 49 MG-51 MG TABLET PO SCH ×2 (09:29→21:32)
--- NOTE | 2018-09-16 17:29 | PN ---
Progress Note, Physician History of Present Illness: Shortness of breath with exertion, orthopnea improving with IV diuresis. - Current Medication List Current Medications: Active Medications Aspirin (Asa -) 81 mg PO DAILY [facility] Last Admin: 09/16/18 09:28 Dose: 81 mg Atorvastatin Calcium (Lipitor -) 20 mg PO HS [facility] Last Admin: 09/15/18 21:28 Dose: 20 mg Carvedilol (Coreg -) 12.5 mg PO BID [facility] Last Admin: 09/16/18 09:28 Dose: 12.5 mg Furosemide (Lasix Injection -) 40 mg IVPUSH BID@0600,1400 [facility] Last Admin: 09/16/18 14:21 Dose: 40 mg Sacubitril/Valsartan (Entresto 49 Mg-51 Mg Tablet) 1 tab PO BID [facility] Last Admin: 09/16/18 09:29 Dose: 1 tab - Objective Vital Signs: Vital Signs Temperature 97.8 F 09/16/18 15:26 Pulse Rate 54 L 09/16/18 15:26 Respiratory Rate 20 09/16/18 15:26 Blood Pressure 76/42 L 09/16/18 15:26 O2 Sat by Pulse Oximetry (%) 97 09/16/18 09:00 Constitutional: Yes: No Distress, Calm Neck: Yes: Supple Cardiovascular: Yes: Regular Rate and Rhythm, Murmur (2/6 SM) Respiratory: Yes: Regular, CTA Bilaterally Gastrointestinal: Yes: Soft, Hypoactive Bowel Sounds Edema: No Labs: CBC, BMP 09/14/18 14:32 09/15/18 07:20 INR, PTT INR 1.11 (0.83-1.09) H 09/14/18 14:32 - ....Imaging Chest X-ray: Report Reviewed (Improved congestion and effusons) Problem List - Problems (1) Subendocardial ischemia Code(s): I24.8 - OTHER FORMS OF ACUTE ISCHEMIC HEART DISEASE (2) Nonadherence to medication Code(s): Z91.14 - PATIENT'S OTHER NONCOMPLIANCE WITH MEDICATION REGIMEN (3) Acute on chronic combined systolic (congestive) and diastolic (congestive) heart failure Code(s): I50.43 - ACUTE ON CHRONIC COMBINED SYSTOLIC AND DIASTOLIC HRT FAIL (4) CAD (coronary artery disease) Code(s): I25.10 - ATHSCL HEART DISEASE OF [place] CORONARY ARTERY W/O ANG PCTRS Qualifiers: Coronary Disease-Associated Artery/Lesion type: [place] artery [place] vs. transplanted heart: [place] heart Associated angina: without angina Qualified Code(s): I25.10 - Atherosclerotic heart disease of [place] coronary artery without angina pectoris (5) HTN (hypertension) Code(s): I10 - ESSENTIAL (PRIMARY) HYPERTENSION Qualifiers: Hypertension type: essential hypertension Qualified Code(s): I10 - Essential (primary) hypertension (6) Shortness of breath on exertion Code(s): R06.02 - SHORTNESS OF BREATH Assessment/Plan 12/19/2017 Echo: Normal LV size with mild LVH mod decreased LV systolic function , abnl LV compliance, mod LAE, mild LANEY, mild BRO, normal RV size with borderline reduced RV fxn, mild , mod MR, mod TR, mild [place] RVSP 26 mmHg 1. Acute on chronic LV moderate decreased systolic and diastolic heart failure in context of medication noncompliance and NSAID use 2. 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 HTN/HCVD 4. Hyperlipidemia PLAN: 1. Oral diuresis with Lasix 20 qd and Aldactone 25 qd and monitor diuretic response, renal fxn and electrolytes 2. Continue Entresto 49/51 mg twice a day 3. Continue Carvedilol 12.5 bid 4. Continue ASA 81 mg once a day and Lipitor 20 qd for goal LDL<100 5. Trops downtrending 6. Emphasized importance of medication and diet compliance
[2018-09-16] MEDS: SPIRONOLACTONE 25 MG TABLET (FP) PO SCH (18:07)
[2018-09-16] MEDS: ATORVASTATIN CA 20 MG TABLET (FP) PO SCH (21:31)
[2018-09-17] MEDS: CARVEDILOL 12.5 MG TABLET (FP) PO SCH ×2 (09:17→21:19)
[2018-09-17] MEDS: ASPIRIN 81 MG CHEWABLE TABLETS PO SCH (09:17)
[2018-09-17] MEDS: FUROSEMIDE 20 MG TABLET (FP) PO SCH (09:17)
[2018-09-17] MEDS: SPIRONOLACTONE 25 MG TABLET (FP) PO SCH ×2 (09:17→09:23)
[2018-09-17] MEDS ORDERED: PT OWN MED DRAWER 7, Y5N ONE ×2 (09:18→21:17)
[2018-09-17] MEDS: SACUBITRIL/VALSARTAN 49 MG-51 MG TABLET PO SCH ×2 (09:19→21:18)
--- NOTE | 2018-09-17 12:19 | PN ---
Progress Note, Physician History of Present Illness: Shortness of breath with exertion, orthopnea improving with IV diuresis, but reports breathless while talking, non-smoker. - Current Medication List Current Medications: Active Medications Aspirin (Asa -) 81 mg PO DAILY [facility] Last Admin: 09/17/18 09:17 Dose: 81 mg Atorvastatin Calcium (Lipitor -) 20 mg PO HS [facility] Last Admin: 09/16/18 21:31 Dose: 20 mg Carvedilol (Coreg -) 12.5 mg PO BID [facility] Last Admin: 09/17/18 09:17 Dose: 12.5 mg Furosemide (Lasix -) 20 mg PO DAILY [facility] Last Admin: 09/17/18 09:17 Dose: 20 mg Sacubitril/Valsartan (Entresto 49 Mg-51 Mg Tablet) 1 tab PO BID [facility] Last Admin: 09/17/18 09:19 Dose: 1 tab Spironolactone (Aldactone -) 25 mg PO DAILY [facility] Last Admin: 09/17/18 09:23 Dose: Not Given - Objective Vital Signs: Vital Signs Temperature 98.1 F 09/17/18 08:15 Pulse Rate 90 09/17/18 08:15 Respiratory Rate 20 09/17/18 08:15 Blood Pressure 139/71 09/17/18 08:15 O2 Sat by Pulse Oximetry (%) 97 09/16/18 21:00 Constitutional: Yes: No Distress, Calm, Thin Neck: Yes: Supple Cardiovascular: Yes: Regular Rate and Rhythm Respiratory: Yes: Regular, Diminished Gastrointestinal: Yes: Normal Bowel Sounds, Soft Edema: No Labs: CBC, BMP 09/14/18 14:32 09/15/18 07:20 INR, PTT INR 1.11 (0.83-1.09) H 09/14/18 14:32 - ....Imaging Chest X-ray: Report Reviewed (Improved congestion and effusions) Problem List - Problems (1) Subendocardial ischemia Code(s): I24.8 - OTHER FORMS OF ACUTE ISCHEMIC HEART DISEASE (2) Nonadherence to medication Code(s): Z91.14 - PATIENT'S OTHER NONCOMPLIANCE WITH MEDICATION REGIMEN (3) Acute on chronic combined systolic (congestive) and diastolic (congestive) heart failure Code(s): I50.43 - ACUTE ON CHRONIC COMBINED SYSTOLIC AND DIASTOLIC HRT FAIL (4) CAD (coronary artery disease) Code(s): I25.10 - ATHSCL HEART DISEASE OF [place] CORONARY ARTERY W/O ANG PCTRS Qualifiers: Coronary Disease-Associated Artery/Lesion type: [place] artery [place] vs. transplanted heart: [place] heart Associated angina: without angina Qualified Code(s): I25.10 - Atherosclerotic heart disease of [place] coronary artery without angina pectoris (5) HTN (hypertension) Code(s): I10 - ESSENTIAL (PRIMARY) HYPERTENSION Qualifiers: Hypertension type: essential hypertension Qualified Code(s): I10 - Essential (primary) hypertension (6) Shortness of breath on exertion Code(s): R06.02 - SHORTNESS OF BREATH Assessment/Plan 12/19/2017 Echo: Normal LV size with mild LVH mod decreased LV systolic function , abnl LV compliance, mod LAE, mild LANEY, mild BRO, normal RV size with borderline reduced RV fxn, mild , mod MR, mod TR, mild [place] RVSP 26 mmHg 1. Acute on chronic LV moderate decreased systolic and diastolic heart failure in context of medication noncompliance and NSAID use 2. 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 HTN/HCVD 4. Hyperlipidemia PLAN: 1. Oral diuresis with Lasix 20 qd and Aldactone 25 qd and monitor diuretic response, renal fxn and electrolytes 2. Continue Entresto 49/51 mg twice a day 3. Continue Carvedilol 12.5 bid 4. Continue ASA 81 mg once a day and Lipitor 20 qd for goal LDL<100 5. Trops downtrending 6. Emphasized importance of medication and diet compliance, trial of inhalers
[2018-09-17] MEDS ORDERED: ALBUTEROL SO4 8 GM HFA INHALER IH PRN (12:20)
[2018-09-17] MEDS ORDERED: ALBUTEROL SO4 2.5/IPRATROPIUM 0.5 INH SOL 3 ML VIAL.NEB. NEB PRN (12:28)
[2018-09-17] MEDS: ATORVASTATIN CA 20 MG TABLET (FP) PO SCH (21:19)
[2018-09-18] MEDS: SACUBITRIL/VALSARTAN 49 MG-51 MG TABLET PO SCH ×2 (09:34→21:59)
[2018-09-18] MEDS: CARVEDILOL 12.5 MG TABLET (FP) PO SCH (09:34)
[2018-09-18] MEDS: SPIRONOLACTONE 25 MG TABLET (FP) PO SCH ×2 (09:37→09:51)
[2018-09-18] MEDS: ASPIRIN 81 MG CHEWABLE TABLETS PO SCH (09:37)
[2018-09-18] MEDS: FUROSEMIDE 20 MG TABLET (FP) PO SCH (09:37)
--- NOTE | 2018-09-18 11:52 | PN ---
Progress Note, Physician Chief Complaint: SOB on exertion - Current Medication List Current Medications: Active Medications Albuterol/Ipratropium (Duoneb -) 1 amp NEB Q4H PRN PRN Reason: SHORTNESS OF BREATH Last Admin: 09/17/18 16:06 Dose: 1 amp Aspirin (Asa -) 81 mg PO DAILY [facility] Last Admin: 09/18/18 09:37 Dose: 81 mg Atorvastatin Calcium (Lipitor -) 20 mg PO HS [facility] Last Admin: 09/17/18 21:19 Dose: 20 mg Carvedilol (Coreg -) 12.5 mg PO BID [facility] Last Admin: 09/18/18 09:34 Dose: Not Given Furosemide (Lasix -) 20 mg PO DAILY [facility] Last Admin: 09/18/18 09:37 Dose: 20 mg Sacubitril/Valsartan (Entresto 49 Mg-51 Mg Tablet) 1 tab PO BID [facility] Last Admin: 09/18/18 09:34 Dose: Not Given Spironolactone (Aldactone -) 25 mg PO DAILY [facility] Last Admin: 09/18/18 09:51 Dose: Not Given - Objective Vital Signs: Vital Signs Temperature 98.3 F 09/18/18 10:21 Pulse Rate 79 09/18/18 10:21 Respiratory Rate 20 09/18/18 10:21 Blood Pressure 92/50 L 09/18/18 10:21 O2 Sat by Pulse Oximetry (%) 97 09/18/18 09:00 Constitutional: Yes: Calm, Anxious Eyes: Yes: WNL HENT: Yes: WNL Neck: Yes: WNL Cardiovascular: Yes: WNL Respiratory: Yes: SOB on Exertion Gastrointestinal: Yes: WNL ...Rectal Exam: Yes: Deferred Genitourinary: Yes: WNL Breast(s): Yes: WNL Extremities: Yes: Delayed Capillary Refill Psychiatric: Yes: Alert Labs: CBC, BMP 09/14/18 14:32 09/15/18 07:20 INR, PTT INR 1.11 (0.83-1.09) H 09/14/18 14:32 Assessment/Plan Possible discharge
--- NOTE | 2018-09-18 12:30 | PN ---
Progress Note, Physician History of Present Illness: Shortness of breath with exertion, orthopnea close to baseline, did not report relief with BD trial. - Current Medication List Current Medications: Active Medications Albuterol/Ipratropium (Duoneb -) 1 amp NEB Q4H PRN PRN Reason: SHORTNESS OF BREATH Last Admin: 09/17/18 16:06 Dose: 1 amp Aspirin (Asa -) 81 mg PO DAILY [facility] Last Admin: 09/18/18 09:37 Dose: 81 mg Atorvastatin Calcium (Lipitor -) 20 mg PO HS [facility] Last Admin: 09/17/18 21:19 Dose: 20 mg Carvedilol (Coreg -) 12.5 mg PO BID [facility] Last Admin: 09/18/18 09:34 Dose: Not Given Furosemide (Lasix -) 20 mg PO DAILY [facility] Last Admin: 09/18/18 09:37 Dose: 20 mg Sacubitril/Valsartan (Entresto 49 Mg-51 Mg Tablet) 1 tab PO BID [facility] Last Admin: 09/18/18 09:34 Dose: Not Given Spironolactone (Aldactone -) 25 mg PO DAILY [facility] Last Admin: 09/18/18 09:51 Dose: Not Given - Objective Vital Signs: Vital Signs Temperature 98.3 F 09/18/18 10:21 Pulse Rate 79 09/18/18 10:21 Respiratory Rate 20 09/18/18 10:21 Blood Pressure 92/50 L 09/18/18 10:21 O2 Sat by Pulse Oximetry (%) 97 09/18/18 09:00 Constitutional: Yes: No Distress, Calm, Thin Neck: Yes: Supple Cardiovascular: Yes: Regular Rate and Rhythm, Murmur (2/6 SM) Respiratory: Yes: Regular, Diminished Gastrointestinal: Yes: Normal Bowel Sounds, Soft Edema: No Labs: CBC, BMP 09/14/18 14:32 09/15/18 07:20 INR, PTT INR 1.11 (0.83-1.09) H 09/14/18 14:32 Problem List - Problems (1) Subendocardial ischemia Code(s): I24.8 - OTHER FORMS OF ACUTE ISCHEMIC HEART DISEASE (2) Nonadherence to medication Code(s): Z91.14 - PATIENT'S OTHER NONCOMPLIANCE WITH MEDICATION REGIMEN (3) Acute on chronic combined systolic (congestive) and diastolic (congestive) heart failure Code(s): I50.43 - ACUTE ON CHRONIC COMBINED SYSTOLIC AND DIASTOLIC HRT FAIL (4) CAD (coronary artery disease) Code(s): I25.10 - ATHSCL HEART DISEASE OF [place] CORONARY ARTERY W/O ANG PCTRS Qualifiers: Coronary Disease-Associated Artery/Lesion type: [place] artery [place] vs. transplanted heart: [place] heart Associated angina: without angina Qualified Code(s): I25.10 - Atherosclerotic heart disease of [place] coronary artery without angina pectoris (5) HTN (hypertension) Code(s): I10 - ESSENTIAL (PRIMARY) HYPERTENSION Qualifiers: Hypertension type: essential hypertension Qualified Code(s): I10 - Essential (primary) hypertension (6) Shortness of breath on exertion Code(s): R06.02 - SHORTNESS OF BREATH Assessment/Plan 12/19/2017 Echo: Normal LV size with mild LVH mod decreased LV systolic function , abnl LV compliance, mod LAE, mild LANEY, mild BRO, normal RV size with borderline reduced RV fxn, mild , mod MR, mod TR, mild [place] RVSP 26 mmHg 1. Acute on chronic LV moderate decreased systolic and diastolic heart failure in context of medication noncompliance and NSAID use 2. Coronary artery disease - TAKE OUT WAITER/WAITRESS of LAD with collaterals with subendocardial ischemic injury 3. HTN/HCVD 4. Hyperlipidemia PLAN: 1. Oral diuresis with Lasix 20 qd and Aldactone 25 qd and monitor diuretic response, renal fxn and electrolytes 2. Continue Entresto 49/51 mg twice a day 3. Decrease Carvedilol 6.25 bid as hemodynamics tolerate 4. Continue ASA 81 mg once a day and Lipitor 20 qd for goal LDL<100 5. Trops downtrending 6. Emphasized importance of medication and diet compliance, trial of inhalers
[2018-09-18] MEDS ORDERED: PT OWN MED DRAWER 7, Y5N ONE (20:40)
[2018-09-18] MEDS: ATORVASTATIN CA 20 MG TABLET (FP) PO SCH (21:58)
[2018-09-18] MEDS: CARVEDILOL 6.25 MG TABLET (FP) PO SCH (21:58)
--- NOTE | 2018-09-19 10:02 | PN ---
Progress Note, Physician History of Present Illness: Feels better - Current Medication List Current Medications: Active Medications Albuterol/Ipratropium (Duoneb -) 1 amp NEB Q4H PRN PRN Reason: SHORTNESS OF BREATH Last Admin: 09/17/18 16:06 Dose: 1 amp Aspirin (Asa -) 81 mg PO DAILY [facility] Last Admin: 09/18/18 09:37 Dose: 81 mg Atorvastatin Calcium (Lipitor -) 20 mg PO HS [facility] Last Admin: 09/18/18 21:58 Dose: 20 mg Carvedilol (Coreg -) 6.25 mg PO BID [facility] Last Admin: 09/18/18 21:58 Dose: 6.25 mg Furosemide (Lasix -) 20 mg PO DAILY [facility] Last Admin: 09/18/18 09:37 Dose: 20 mg Sacubitril/Valsartan (Entresto 49 Mg-51 Mg Tablet) 1 tab PO BID [facility] Last Admin: 09/18/18 21:59 Dose: 1 tab Spironolactone (Aldactone -) 25 mg PO DAILY [facility] Last Admin: 09/18/18 09:51 Dose: Not Given - Objective Vital Signs: Vital Signs Temperature 97.6 F 09/19/18 06:00 Pulse Rate 73 09/19/18 06:00 Respiratory Rate 18 09/19/18 06:00 Blood Pressure 102/64 09/19/18 06:00 O2 Sat by Pulse Oximetry (%) 98 09/18/18 21:00 Constitutional: Yes: No Distress Eyes: Yes: WNL HENT: Yes: WNL Neck: Yes: WNL Cardiovascular: Yes: WNL Respiratory: Yes: WNL, SOB on Exertion Gastrointestinal: Yes: WNL Genitourinary: Yes: WNL Breast(s): Yes: WNL Musculoskeletal: Yes: WNL Extremities: Yes: WNL Neurological: Yes: Alert Psychiatric: Yes: Alert Labs: CBC, BMP 09/14/18 14:32 09/15/18 07:20 INR, PTT INR 1.11 (0.83-1.09) H 09/14/18 14:32
[2018-09-19] MEDS: ASPIRIN 81 MG CHEWABLE TABLETS PO SCH (11:24)
[2018-09-19] MEDS: FUROSEMIDE 20 MG TABLET (FP) PO SCH (11:24)
[2018-09-19] MEDS: SPIRONOLACTONE 25 MG TABLET (FP) PO SCH (11:25)
[2018-09-19] MEDS: CARVEDILOL 6.25 MG TABLET (FP) PO SCH (11:25)
[2018-09-19] MEDS ORDERED: PT OWN MED DRAWER 7, Y5N ONE (11:27)
[2018-09-19] MEDS: SACUBITRIL/VALSARTAN 49 MG-51 MG TABLET PO SCH (11:28)
[2018-09-19 11:34] VITALS: BP 103/60; PULSE 84; TEMP 98.7
== END 2018-09-19 11:42 | disposition home or self-care (01) | DRG 292 ==
LOC: JER 13:34 → JERBED 14:42 → J8W 09-15 11:06
PROVIDERS: ADMIT Internal Medicine; ATTEND Internal Medicine
DX: I11.0 Hypertensive heart disease with heart failure (principal); I24.8 Other forms of acute ischemic heart disease; I50.43 Acute on chronic combined systolic (congestive) and diastolic (congestive) heart failure; I25.10 Atherosclerotic heart disease of native coronary artery without angina pectoris; I34.0 Nonrheumatic mitral (valve) insufficiency; I36.1 Nonrheumatic tricuspid (valve) insufficiency; I27.20 Pulmonary hypertension, unspecified; Z91.14 Patient's other noncompliance with medication regimen; E78.5 Hyperlipidemia, unspecified; I45.10 Unspecified right bundle-branch block
CPT/HCPCS: 36415; 71045-TC-FY; 71046-TC-FY; 80048; 80053; 80061; 81003; 82550; 83721; 83880; 84443; 84484; 85025; 85610; 93005; 93010; 94640; 99284-25